=== PATIENT | male | born 1965 | race Caucasian/White ===

== ENCOUNTER → 2017-12-01 15:23 | Outpatient (CLI) | payer OTHER, SELFPAY ==
[2017-12-01 17:08] LABS: Absolute Lymphocyte Count 2.39 X10^3/ul (0.83-4.51); Absolute Neutrophil Count 6.3 X10^3/uL (2.0-7.7); Basophil# 0.04 X10^3/uL; Basophil% 0.4 % (0-1); Eosinophil# 0.24 X10^3/uL; Eosinophils% 2.4 % (0-5); Hematocrit 42.6 % (40-54); Hemoglobin 14.1 g/dl (13.0-16.5); Lymphocyte # 2.39 X10^3/ul (4.0); Lymphocyte % 24.1 % (19-41); Mean Corp Hgb Conc 33.1 g/gl (32-36); Mean Corpuscular Hgb 31.6 pg (27.0-32.0); Mean Corpuscular Volume 95.5 fL (80-94); Mean Platelet Vol. 11.3 fl (6.2-12.0); Monocyte# 0.94 X10^3/uL; Monocyte% 9.5 % (0-10); Neutrophil # 6.27 X10^3/uL (2.7-7.7); Neutrophil % 63.3 % (47-70); Platelet Count 246 K/mm3 (150-450); RBC Distribution Width CV 12.6 % (11.6-14.6); RBC Distribution Width SD 42.9 fl (35.1-43.9); Red Blood Count 4.46 M/mm3 (4.6-6.2); White Blood Count 9.9 K/mm3 (4.4-11.0)
[2017-12-01 17:37] LABS: AST(SGOT) 15 U/L (15-37); Alanine Aminotransfer ALT/SGPT 28 U/L (16-61); Albumin, Serum 3.7 g/dL (3.2-5.0); Alkaline Phosphatase 96 U/L (45-117); Anion Gap 11 (5-15); BUN 25 mg/dL (7-18); BUN/Creat Ratio 19.8 RATIO (10-20); Calcium,Total 8.9 mg/dL (8.5-10.1); Chloride 104 mmol/L (98-107); Creatinine, Serum 1.26 mg/dL (0.70-1.30); EST Glomerular Filtration Rate 64 mL/min (>60); Est Glom Filt Rate - Afr Amer 77 mL/min (>60); Globulin 3.6 g/dL (2.2-4.2); Glucose 94 mg/dL (74-106); Potassium 3.6 mmol/L (3.5-5.1); Protein, Total 7.3 g/dL (6.4-8.2); Sodium Level 141 mmol/L (136-145); Thyroid Stim Hormone (TSH) 1.92 uIU/mL (0.358-3.74)
[2017-12-01 18:16] LABS: POSITIVE COUNT NO; POSITIVE DIFFERENTIAL NO; POSITIVE MORPHOLOGY NO
== END ==
PROVIDERS: Family Provider Family Medicine Geriatric Medicine; PCP Family Medicine Geriatric Medicine; Visit Provider Family Medicine Geriatric Medicine
DX: E11.9 Type 2 diabetes mellitus without complications (principal); I10 Essential (primary) hypertension
CPT/HCPCS: 36415; 80053; 84443; 85025

== ENCOUNTER → 2018-11-11 16:01 | Outpatient (CLI) | payer OTHER, SELFPAY ==
[2018-11-11 16:49] LABS: Absolute Lymphocyte Count 1.89 X10^3/ul (0.83-4.51); Absolute Neutrophil Count 4.5 X10^3/uL (2.0-7.7); Basophil# 0.02 X10^3/uL; Basophil% 0.3 % (0-1); Eosinophil# 0.16 X10^3/uL; Eosinophils% 2.2 % (0-5); Hematocrit 41.1 % (40-54); Hemoglobin 13.8 g/dl (13.0-16.5); Lymphocyte # 1.89 X10^3/ul (4.0); Mean Corp Hgb Conc 33.6 g/gl (32-36); Mean Corpuscular Hgb 31.4 pg (27.0-32.0); Mean Corpuscular Volume 93.4 fL (80-94); Mean Platelet Vol. 10.9 fl (6.2-12.0); Monocyte# 0.66 X10^3/uL; Monocyte% 9.1 % (0-10); Neutrophil # 4.54 X10^3/uL (2.7-7.7); Neutrophil % 62.3 % (47-70); Platelet Count 194 K/mm3 (150-450); RBC Distribution Width CV 12.3 % (11.6-14.6); RBC Distribution Width SD 41.2 fl (35.1-43.9); White Blood Count 7.3 K/mm3 (4.4-11.0)
[2018-11-11 16:55] LABS: BUN 19 mg/dL (7-18); Creatinine, Serum 0.92 mg/dL (0.70-1.30); Glucose 93 mg/dL (74-106)
[2018-11-11 16:56] LABS: Anion Gap 6 (5-15); BUN/Creat Ratio 20.8 RATIO (10-20); Calcium,Total 9.2 mg/dL (8.5-10.1); Chloride 106 mmol/L (98-107); EST Glomerular Filtration Rate 92 mL/min (>60); Est Glom Filt Rate - Afr Amer 112 mL/min (>60); Potassium 3.6 mmol/L (3.5-5.1); Sodium Level 139 mmol/L (136-145)
[2018-11-11 17:14] LABS: POSITIVE COUNT NO; POSITIVE DIFFERENTIAL NO; POSITIVE MORPHOLOGY NO
[2018-11-11 17:58] LABS: International Normalized Ratio 1.1; Prothrombin Time (Protime)PT. 14.3 SECONDS (11.7-14.9)
== END ==
PROVIDERS: Family Provider Family Medicine Geriatric Medicine; PCP Family Medicine Geriatric Medicine; Referring Provider Specialist; Visit Provider Family Medicine Geriatric Medicine
DX: Z01.810 Encounter for preprocedural cardiovascular examination (principal)
CPT/HCPCS: 36415; 80048; 85025; 85610

== ENCOUNTER → 2018-12-02 13:55 | Outpatient (CLI) | payer OTHER, SELFPAY ==
[2018-12-02 15:33] LABS: Mean Corp Hgb Conc 34.1 g/dL (32-36); Mean Corpuscular Volume 93.8 fL (80-94); RBC Distribution Width CV 12.1 % (11.6-14.6); Red Blood Count 4.37 M/mm3 (4.6-6.2); White Blood Count 8.3 K/mm3 (4.4-11.0)
[2018-12-02 15:34] LABS: Absolute Lymphocyte Count 2.04 X10^3/uL (0.83-4.51); Absolute Neutrophil Count 5.4 X10^3/uL (2.0-7.7); Basophil# 0.04 X10^3/uL; Basophil% 0.5 % (0-1); Eosinophil# 0.16 X10^3/uL; Eosinophils% 1.9 % (0-5); Lymphocyte # 2.04 X10^3/ul (4.0); Lymphocyte % 24.5 % (19-41); Mean Platelet Vol. 10.9 fl (6.2-12.0); Monocyte% 8.4 % (0-10); NRBC Flagged by Analyzer 0 % (0-5); Neutrophil # 5.37 X10^3/uL (2.7-7.7); Neutrophil % 64.3 % (47-70); Platelet Count 213 K/mm3 (150-450)
[2018-12-02 18:14] LABS: Vitamin D,25 Hydroxy 28.3 ng/mL (29.95-100.01)
[2018-12-02 18:19] LABS: ALB/GLOB Ratio 1.1 RATIO (0.9-2.4); AST(SGOT) 19 U/L (15-37); Alanine Aminotransfer ALT/SGPT 35 U/L (16-61); Albumin, Serum 3.9 g/dL (3.2-5.0); Alkaline Phosphatase 106 U/L (45-117); Anion Gap 10 (5-15); BUN 24 mg/dL (7-18); BUN/Creat Ratio 21.8 RATIO (10-20); Chloride 102 mmol/L (98-107); EST Glomerular Filtration Rate 75 mL/min (>60); Est Glom Filt Rate - Afr Amer 90 mL/min (>60); Globulin 3.6 g/dL (2.2-4.2); Glucose 89 mg/dL (74-106); Potassium 3.6 mmol/L (3.5-5.1); Protein, Total 7.5 g/dL (6.4-8.2); Sodium Level 139 mmol/L (136-145); Thyroid Stim Hormone (TSH) 2.05 uIU/mL (0.358-3.74)
== END ==
PROVIDERS: Family Provider Family Medicine Geriatric Medicine; PCP Family Medicine Geriatric Medicine; Visit Provider Family Medicine Geriatric Medicine
DX: E11.9 Type 2 diabetes mellitus without complications (principal); E55.9 Vitamin D deficiency, unspecified; I10 Essential (primary) hypertension
CPT/HCPCS: 36415; 80053; 82306; 84443; 85025

== ENCOUNTER → 2019-12-06 15:10 | Outpatient (CLI) | payer OTHER, SELFPAY ==
[2019-12-06 17:08] LABS: Absolute Lymphocyte Count 2.15 X10^3/uL (0.83-4.51); Absolute Neutrophil Count 6.2 X10^3/uL (2.0-7.7); Basophil# 0.05 X10^3/uL; Basophil% 0.5 % (0-1); Eosinophil# 0.21 X10^3/uL; Eosinophils% 2.2 % (0-5); Hematocrit 42.1 % (40-54); Hemoglobin 13.4 g/dL (13.0-16.5); Lymphocyte # 2.15 X10^3/ul (4.0); Lymphocyte % 22.7 % (19-41); Mean Corp Hgb Conc 31.8 g/dL (32-36); Mean Corpuscular Hgb 29.7 pg (27.0-32.0); Mean Corpuscular Volume 93.3 fL (80-94); Mean Platelet Vol. 11.2 fl (6.2-12.0); Monocyte# 0.83 X10^3/uL; Monocyte% 8.7 % (0-10); NRBC Flagged by Analyzer 0 % (0-5); Neutrophil # 6.22 X10^3/uL (2.7-7.7); Neutrophil % 65.6 % (47-70); Platelet Count 298 K/mm3 (150-450); RBC Distribution Width CV 12.6 % (11.6-14.6); RBC Distribution Width SD 43.1 fl (35.1-43.9); Red Blood Count 4.51 M/mm3 (4.6-6.2); White Blood Count 9.5 K/mm3 (4.4-11.0)
[2019-12-06 17:30] LABS: AST(SGOT) 16 U/L (15-37); Alanine Aminotransfer ALT/SGPT 25 U/L (16-61); Albumin, Serum 3.9 g/dL (3.2-5.0); Alkaline Phosphatase 122 U/L (45-117); Anion Gap 5 (5-15); BUN 18 mg/dL (7-18); BUN/Creat Ratio 16.1 RATIO (10-20); Calcium,Total 8.9 mg/dL (8.5-10.1); Chloride 108 mmol/L (98-107); Creatinine, Serum 1.12 mg/dL (0.70-1.30); EST Glomerular Filtration Rate 73 mL/min (>60); Est Glom Filt Rate - Afr Amer 88 mL/min (>60); Globulin 3.9 g/dL (2.2-4.2); Glucose 90 mg/dL (74-106); Potassium 3.6 mmol/L (3.5-5.1); Protein, Total 7.8 g/dL (6.4-8.2); Sodium Level 141 mmol/L (136-145); Thyroid Stim Hormone (TSH) 4.55 uIU/mL (0.358-3.74)
== END ==
PROVIDERS: PCP Family Medicine Geriatric Medicine; Visit Provider Family Medicine Geriatric Medicine
DX: E11.9 Type 2 diabetes mellitus without complications (principal); I10 Essential (primary) hypertension
CPT/HCPCS: 36415; 80053; 84443; 85025

== ENCOUNTER → 2020-01-31 15:50 | Outpatient (CLI) | payer OTHER, SELFPAY | PROVIDERS: PCP Family Medicine Geriatric Medicine; Visit Provider Family Medicine Geriatric Medicine | DX: E03.9 Hypothyroidism, unspecified (principal) | CPT/HCPCS: 36415; 84443 ==

== ENCOUNTER → 2020-12-14 12:54 | Outpatient (CLI) | payer OTHER, SELFPAY ==
[2020-12-14 17:42] LABS: Absolute Lymphocyte Count 2.16 X10^3/uL (0.83-4.51); Basophil# 0.05 X10^3/uL; Basophil% 0.6 % (0-1); Eosinophil# 0.24 X10^3/uL; Hematocrit 42.9 % (40-54); Hemoglobin 14.5 g/dL (13.0-16.5); Lymphocyte # 2.16 X10^3/ul (0.83-4.51); Lymphocyte % 26.7 % (19-41); Mean Corp Hgb Conc 33.8 g/dL (32-36); Mean Corpuscular Hgb 31.3 pg (27.0-32.0); Mean Corpuscular Volume 92.5 fL (80-94); Mean Platelet Vol. 11.5 fl (6.2-12.0); Monocyte# 0.65 X10^3/uL; NRBC Flagged by Analyzer 0 % (0-5); Neutrophil # 4.97 X10^3/uL (2.7-7.7); Neutrophil % 61.6 % (47-70); Platelet Count 242 K/mm3 (150-450); RBC Distribution Width CV 12.1 % (11.6-14.6); RBC Distribution Width SD 41.1 fl (35.1-43.9); Red Blood Count 4.64 M/mm3 (4.6-6.2); White Blood Count 8.1 K/mm3 (4.4-11.0)
[2020-12-14 18:15] LABS: ALB/GLOB Ratio 1.1 RATIO (0.9-2.4); AST(SGOT) 20 U/L (15-37); Alanine Aminotransfer ALT/SGPT 32 U/L (16-61); Alkaline Phosphatase 98 U/L (45-117); Anion Gap 10 (5-15); BUN 18 mg/dL (7-18); BUN/Creat Ratio 19.7 RATIO (10-20); Calcium,Total 9.1 mg/dL (8.5-10.1); Chloride 105 mmol/L (98-107); Creatinine, Serum 0.91 mg/dL (0.70-1.30); EST Glomerular Filtration Rate 92 mL/min (>60); Est Glom Filt Rate - Afr Amer 111 mL/min (>60); Globulin 3.5 g/dL (2.2-4.2); Glucose 87 mg/dL (74-106); Potassium 3.6 mmol/L (3.5-5.1); Protein, Total 7.5 g/dL (6.4-8.2); Sodium Level 139 mmol/L (136-145); Thyroid Stim Hormone (TSH) 2.24 uIU/mL (0.358-3.74)
== END ==
PROVIDERS: PCP Family Medicine Geriatric Medicine; Visit Provider Family Medicine Geriatric Medicine
DX: E11.9 Type 2 diabetes mellitus without complications (principal); I10 Essential (primary) hypertension
CPT/HCPCS: 36415; 80053; 84443; 85025

== ENCOUNTER → 2021-04-25 11:29 | Outpatient (CLI) | payer OTHER, SELFPAY ==
--- NOTE | 2021-04-25 11:40 | RAD_ITS ---
STUDY: X-RAY CHEST REASON FOR EXAM: Male, 56 years old. Atypical chest pain TECHNIQUE: PA and lateral views of the chest. COMPARISON: None. FINDINGS: The lungs are clear and expanded. There is no demonstrated pleural abnormality. Normal size heart. Normal mediastinum and megan. Normal visualized pulmonary arteries. Normal visualized aortic arch and descending thoracic aorta. Normal visualized thoracic spine. Normal visualized ribs, clavicles, and shoulders. There is no demonstrated abnormality of the visualized soft tissue structures of the upper abdomen. RAD/Chest PA and Lateral IMPRESSION: Normal x-ray examination of the chest. Electronically Signed: Rogelio Jean MD at 16:52 EST , Service support ,
== END ==
PROVIDERS: PCP Family Medicine Geriatric Medicine; Referring Provider Family Medicine Geriatric Medicine; Visit Provider Family Medicine Geriatric Medicine
DX: R07.9 Chest pain, unspecified (principal)
CPT/HCPCS: 71046

== ENCOUNTER 2022-04-12 22:50 | Inpatient (IN) | payer OTHER, SELFPAY ==
[2022-04-12 22:51] VITALS: BP 221/132; PULSE 80; RESP 20; TEMP 36; O2SAT 99; BMI 32.8
--- NOTE | 2022-04-12 23:01 | EKG12_ITS ---
Test Reason : DYSRHYTHMIA Blood Pressure : / mmHG Vent. Rate : 111 BPM Atrial Rate : 111 BPM P-R Int : 140 ms QRS Dur : 090 ms QT Int : 324 ms P-R-T Axes : 057 040 042 degrees QTc Int : 440 ms Sinus tachycardia * ACUTE SD anterolateral infarct Abnormal ECG Confirmed by RILEY FIGUEROA, KEN ([id number]), subeditor JAMILA DAMON ([id number]) on 04/16/2022 12:17:54 PM Referred By: Chava Matos Confirmed By:KEN LIN MD
--- NOTE | 2022-04-12 23:15 | EKG12_ITS ---
Test Reason : CP Blood Pressure : / mmHG Vent. Rate : 069 BPM Atrial Rate : 069 BPM P-R Int : 116 ms QRS Dur : 086 ms QT Int : 404 ms P-R-T Axes : 030 054 044 degrees QTc Int : 432 ms Normal sinus rhythm Normal ECG Confirmed by RILEY FIGUEROA, KEN ([id number]), features editor JAMILA DAMON ([id number]) on 04/16/2022 12:18:08 PM Referred By: Chava Matos Confirmed By:KEN LIN MD
--- NOTE | 2022-04-12 23:16 | ED.VIS.CHEST ---
HPI History of Present Illness Chief Complaint: Chest Pain Informant: patient and spouse/S.O. Narrative Narrative: Patient is a 57-year-old male with history of hypertension and hyperlipidemia (not currently on any statins because of side effects) presenting with crushing chest pain. Patient states it started as a heaviness in his chest that has progressively worsened. He states he was watching TV when it started. Was a couple hours ago. He has some associated shortness of breath. He states he has numbness in his arms. He describes as a numbness and heaviness. Denies any weakness of his arms or his legs. Denies any lower extremity symptoms. Denies any discomfort radiation into his back neck or jaw. No other complaints at this time. Was in his normal state of health earlier today. Has never had any like this before. CVD Risk Factors: Positive for Hypertension, Family History 1' </=55 (Maternal uncle) and Smoking (Quit 2 months ago) PFSH [facility]LY [facility], [facility] Medical History (Updated 04/13/22 @ 06:[address] Avis Vidal, DO) HLD (hyperlipidemia) HTN (hypertension) Home Medications citalopram 10 mg tablet mg mood 04/13/22 [History Last Taken Unknown] levothyroxine 25 mcg tablet mcg thyroid 04/13/22 [History Last Taken Unknown] losartan 100 mg-hydrochlorothiazide 25 mg tablet tab blood pressure 04/13/22 [History Last Taken Unknown] potassium chloride 20 mEq tablet,extended release(part/cryst) (Klor-Con M) meq PO supplement 04/13/22 [History Last Taken Unknown] Allergy/AdvReac Type Severity Reaction Status Date / Time No Known Allergies Allergy Verified 04/12/22 22:54 Family History (Updated 04/12/22 @ 23:[address] Joe Cristobal MD) Other CVA (cerebral vascular accident) Social History Smoking Status: Former smoker ROS ROS ED Constitutional Constitutional ED: Reports sweats; Denies chills or fever(s) Eyes Eyes: Denies blurry vision or change in vision ENT ENT ED: Denies rhinorrhea or sore throat Cardiovascular Cardiovascular: Reports as per HPI and chest pain Respiratory/Chest Respiratory/Chest: Reports dyspnea; Denies cough Gastrointestinal Gastrointestinal: Denies abdominal pain, constipation, nausea or vomiting Genitourinary Genitourinary ED: Denies dysuria Musculoskeletal Musculoskeletal: Denies arthralgias, back pain or neck pain Integumentary Denies rash Neurologic Neurologic: Reports paresthesias; Denies weakness Psychiatric Psychiatric: Denies anxiety Hematologic/Lymphatic Hematologic/Lymphatic: Denies easy bleeding or easy bruising EXAM Physical Exam Const Vital Signs: 04/12/22 22:51 04/12/22 22:51 04/12/22 23:23 Temperature 96.8 F L 96.8 F L Temperature Source Temporal Temporal Pulse Rate 80 80 Respiratory Rate 20 H 20 H Blood Pressure 221/132 H 221/132 H Blood Pressure Mean 161 161 Pulse Ox 99 99 Oxygen Delivery Method Room Air Room Air Nasal Cannula Oxygen Flow Rate (L/min) 4 Positive well nourished and well developed Constitutional Narrative: Diaphoretic, unwell appearing General Appearance ED: well developed HEENT Reports dry mucous membranes Mouth ED: Yes dry mucous membranes Mouth: dry mucous membranes Eyes PERRL and EOMs intact bilaterally Neck no JVD Chest Wall inspection of chest normal and palpation of chest normal Resp normal respiratory effort and clear to auscultation bilaterally Cardio regular rate, regular rhythm and no murmurs GI normal to inspection, nondistended, normoactive bowel sounds, soft to palpation and non-tender Back/Spine no CVA tenderness Extremity normal to inspection Extremity Narrative: 2+ bilateral radial and DP pulses General Extremety ED: Negative for edema or pulses abnormal General Extremity: Negative for edema or pulses abnormal Neuro oriented x3 and no sensory deficits noted Sensorium / Orientation: awake and alert Motor Exam: strength 5/5 throughout; Negative for general weakness Psych mental status grossly normal Skin no rashes or lesions noted Heart Score History: Highly Suspicious ECG: Normal Age: >45 - <65 years Risk Factors: >/= 3 Risk Factors or History of CAD Score: 5 MDM MDM MDM Narrative Medical decision making narrative: Patient comes in for diaphoresis and crushing chest pressure. Presentation is concerning for ACS versus dissection given he is also having numbness in his arms. Initial EKG shows sinus rhythm with pronounced T waves in V3 through V4 but there is also elevated J-point's and the wave is concave. Repeat EKG obtained 17 minutes later does not show any dynamic ST segment changes but he now has multiple PVCs. Shortly after that patient becomes unresponsive and goes into ventricular fibrillation. No pulses appreciated. Patient is immediately defibrillated with 200 J. Chest compressions were immediately started as no pulse was appreciated however approximately 20 seconds later patient starts to have spontaneous movement and return of consciousness. Repeat EKG now shows ST elevation ID in the precordial leads. A STEMI alert is called. Spoke with cardiology on-call, Dr. Matos who will come in for cardiac catheterization. Patient is given additional 81 mg of aspirin as he already took 81 mg prior to arrival, Brilinta and heparin load. He started on an amiodarone bolus At approximately 2345 patient has another episode of ventricular tachycardia with sonorous respirations. Patient is immediately defibrillated back into sinus rhythm. He again has return of mentation. While waiting for Chocolate Coater to be ready patient is given oral nitroglycerin for hypertension and chest pain. Initially with the patient's normal EKG and concerning story/hypertension a CTA of the chest abdomen pelvis was ordered to make sure was not a dissection given that he was having this numbness in his arms. This was canceled when patient went into V. fib arrest and an EKG involved into a STEMI. Lab Data Attestation: I reviewed the patient's lab results. Labs: Laboratory Results - last 24 hr 04/12/22 04/12/22 04/12/22 23:05 23:05 23:05 WBC 9.3 RBC 4.68 Hgb 14.8 Hct 44.0 MCV 94.0 MCH 31.6 MCHC 33.6 RDW Std Deviation 43.8 RDW Coeff of [place] 12.8 Plt Count 223 MPV 11.5 Immature Gran % (Auto) 1.400 H Neut % (Auto) 53.3 Lymph % (Auto) 31.9 [place] % (Auto) 9.9 Eos % (Auto) 2.9 Baso % (Auto) 0.6 Absolute Neuts (auto) 5.0 Absolute Lymphs (auto) 2.97 Nucleated RBC % 0 APTT 29.0 Sodium 139 Potassium 3.0 L Chloride 105 Carbon Dioxide 27.0 Anion Gap 7 BUN 17 Creatinine 0.94 Estim Creat Clear Calc 93.46 Est GFR (MDRD) Af Amer 107 Est GFR (MDRD) Non-Af 88 BUN/Creatinine Ratio 18.1 Glucose 151 H Calcium 9.2 Magnesium Troponin I High Sens 27 04/12/22 23:05 WBC RBC Hgb Hct MCV MCH MCHC RDW Std Deviation RDW Coeff of [place] Plt Count MPV Immature Gran % (Auto) Neut % (Auto) Lymph % (Auto) [place] % (Auto) Eos % (Auto) Baso % (Auto) Absolute Neuts (auto) Absolute Lymphs (auto) Nucleated RBC % APTT Sodium Potassium Chloride Carbon Dioxide Anion Gap BUN Creatinine Estim Creat Clear Calc Est GFR (MDRD) Af Amer Est GFR (MDRD) Non-Af BUN/Creatinine Ratio Glucose Calcium Magnesium 2.2 Troponin I High Sens Radiography Chest X-Ray - ED: 1 View, Read by ED Physician, Read by Radiologist and No Acute Disease Critical Care Time Critical Care Time: Yes Critical care time (excluding procedures): 30-74 minutes (35), Discussing w/Patient &/or Family/Etcher Enameling, Discussing w/Consultants, Arranging Admission or Transfer and Performing Direct Patient Care at Bedside Discharge Plan Dx/Rx/DC Orders Clinical Impression: STEMI (ST elevation myocardial infarction), Cardiac arrest with ventricular fibrillation, Coronary artery disease, Hypertensive emergency Disposition Disposition: Acute Care [facility] Discharge Date/Time: 04/13/22 00:10
[2022-04-12] MEDS: Aspirin 81 MG TAB.CHEW PO (23:19)
[2022-04-12] MEDS: 0.9% Normal Saline 1,000 ML 1000 ML IV (23:28)
[2022-04-12 23:30] VITALS: BP 186/116; PULSE 93; RESP 11; O2SAT 97; BMI 34.9
--- NOTE | 2022-04-12 23:33 | PCM.HP.STD ---
HPI - General General Date of Admission: 04/12/22 Date of Service: 04/12/22 Chief Complaint: Chest pressure HPI Narrative MIKEY LANDRUM, is a 57 M with a significant history of hypertension; hyperlipidemia; former tobacco abuse who presents to the emergency department with 3 to 4 hours history of progressively worsening excruciating substernal chest pressure. The pain radiated to his bilateral arms where he had numbness. Associated with symptom is shortness of breath and diaphoresis. He denied any aggravating or ameliorating factors to the pain. Of note patient was on Crestor but because of numbness of his legs he was told to stop his Crestor. With his chest pain he took a pill of his Crestor. EKG showed a STEMI. STEMI alert was called. At the emergency department patient had 2 episodes of V. fib arrest for which he had ACLS with defibrillation; and an episode of V. fib arrest in route through the cardiac cath. He received amiodarone bolus and drip at the ED. [facility] Medical History (Updated 04/13/22 @ 01:[address] Joe Cristobal MD) HLD (hyperlipidemia) HTN (hypertension) Home Medications citalopram 10 mg tablet mg mood 04/13/22 [History Last Taken Unknown] levothyroxine 25 mcg tablet mcg thyroid 04/13/22 [History Last Taken Unknown] losartan 100 mg-hydrochlorothiazide 25 mg tablet tab blood pressure 04/13/22 [History Last Taken Unknown] potassium chloride 20 mEq tablet,extended release(part/cryst) (Klor-Con M) meq PO supplement 04/13/22 [History Last Taken Unknown] Allergy/AdvReac Type Severity Reaction Status Date / Time No Known Allergies Allergy Verified 04/12/22 22:54 Family History (Updated 04/12/22 @ 23:[address] Joe Cristobal MD) Other CVA (cerebral vascular accident) Surgical History no surgical history no surgical history Social History Smoking Status: Former smoker ROS ROS Narrative Pertinent positives and pertinent negatives as noted in HPI. All other systems were reviewed and are negative Vital Signs Vital Signs Vital Signs: 04/12/22 22:51 04/12/22 22:51 Temperature 96.8 F L 96.8 F L Temperature Source Temporal Temporal Pulse Rate 80 80 Respiratory Rate 20 H 20 H Blood Pressure 221/132 H 221/132 H Blood Pressure Mean 161 161 Pulse Ox 99 99 Oxygen Delivery Method Room Air Room Air Weight Weight: 113.5 kg Body Mass Index (BMI) 34.9 Physical Exam Narrative Physical exam: General: Well-nourished, well-developed. Head: Normocephalic, atraumatic, no tenderness Eyes: Vision is grossly intact. EOMI ENT, no trauma, moist mucous membranes, no rhinorrhea Neck: Nontender, No thyromegaly. CVS: Regular rate and rhythm. S1-S2 present. No murmur, gallop or rub. Respiratory : clear to auscultation bilaterally, chest wall nontender, no wheezing Abdomen: Soft, nontender, nondistended, normal bowel sounds, no masses : Deferred Back: Nontender, no CVA tenderness, no midline spinal tenderness, deformities, step-offs Extremities: Nontender full range of motion, no trauma Skin: Diaphoresis; Normal color, no trauma, abrasions Neuro: Alert, oriented, cranial nerves II through XII grossly intact. Psychiatry:Anxious; Not depressed. Results Lab / Micro Data Result Diagrams: 04/12/22 23:05 04/12/22 23:05 Assessment & Plan Assessment/Plan (1) STEMI (ST elevation myocardial infarction): (2) Hypertensive emergency: PLAN: Plan STEMI EKG was reviewed and independently interpreted. EKG showed ST elevation with reciprocal changes. Brilinta; aspirin and heparin bolus given in the emergency department. Chest x-ray was visualized and independently interpreted. I agree with radiologist interpretation of no acute cardiopulmonary process. Initial high-sensitivity troponin was 27, trend. Patient was taken to cardiac cath today percutaneous intervention was done. Conclusion of cath Summary is below: Sub-total Mid LAD with EDUARDA I flow 50% Mid LCX; 50% Prox OM1 50% Mid RCA Successful JURGEN Mid LAD using Resolute [place] 3.0x18 mm, post-dilated using 3.25 mm, optimized proximally using 3.5 mm balloon. Aspirin 81 mg; clopidogrel 75 mg orally daily; atorvastatin nightly; carvedilol twice daily and lisinopril daily per cardiology. I agree with. CBC showed normal white count but with bandemia of 1.4%. Likely reactive. Trend. Admit to the intensive care unit. Hypertensive emergency Highest systolic blood pressure of 236. Highest diastolic blood pressure of 132. Blood pressure medications as above. Trend blood pressures. V. fib arrest Status post shock Amiodarone drip continued. DVT prophylaxis: Subcutaneous Lovenox ordered. Charges/Coding Visit Charges Inpatient E&M: 05303 Init Hosp L3
[2022-04-12 23:35] VITALS: BP 186/116; PULSE 94; RESP 12; TEMP 36.6; O2SAT 94
[2022-04-12] MEDS: Heparin Injection (Vial) 5,000 UNIT/ML VIAL 4000 UNIT IV (23:41)
[2022-04-12] MEDS: TICAGRELOR 90 MG TABLET 180 MG PO (23:41)
[2022-04-12 23:42] LABS: Absolute Lymphocyte Count 2.97 X10^3/uL (0.83-4.51); Basophil# 0.06 X10^3/uL; Basophil% 0.6 % (0-1); Eosinophil# 0.27 X10^3/uL; Eosinophils% 2.9 % (0-5); Hemoglobin 14.8 g/dL (13.0-16.5); Lymphocyte # 2.97 X10^3/ul (0.83-4.51); Lymphocyte % 31.9 % (19-41); Mean Corp Hgb Conc 33.6 g/dL (32-36); Mean Corpuscular Hgb 31.6 pg (27.0-32.0); Mean Platelet Vol. 11.5 fl (6.2-12.0); Monocyte# 0.92 X10^3/uL; Monocyte% 9.9 % (0-10); NRBC Flagged by Analyzer 0 % (0-5); Neutrophil # 4.95 X10^3/uL (2.7-7.7); Neutrophil % 53.3 % (47-70); Platelet Count 223 K/mm3 (150-450); RBC Distribution Width CV 12.8 % (11.6-14.6); RBC Distribution Width SD 43.8 fl (35.1-43.9); Red Blood Count 4.68 M/mm3 (4.6-6.2); White Blood Count 9.3 K/mm3 (4.4-11.0)
[2022-04-12 23:43] VITALS: BP 186/116; PULSE 91; RESP 12; TEMP 36.4; O2SAT 93
[2022-04-12 23:44] LABS: Anion Gap 7 (5-15); BUN 17 mg/dL (7-18); BUN/Creat Ratio 18.1 RATIO (10-20); Calcium,Total 9.2 mg/dL (8.5-10.1); Chloride 105 mmol/L (98-107); Creatinine, Serum 0.94 mg/dL (0.70-1.30); EST Glomerular Filtration Rate 88 mL/min (>60); Est Glom Filt Rate - Afr Amer 107 mL/min (>60); Estimated Creatinine Clearance 93.46 ml/min; Glucose 151 mg/dL (74-106); Sodium Level 139 mmol/L (136-145); Troponin-I HS (w/2H Reflex) 27 pg/mL (3.0-78.0)
--- NOTE | 2022-04-12 23:45 | RAD_ITS ---
INDICATION: CHEST PAIN EXAMINATION/TECHNIQUE: X-RAY - portable upright AP chest x-ray COMPARISON: 04/25/2021 FINDINGS: LINES/DEVICES: None. LUNGS: No consolidation, edema or effusion. No pneumothorax. MEDIASTINUM AND CARDIOVASCULAR STRUCTURES: Cardiac silhouette not enlarged. Central airways and mediastinal contour are unremarkable. BONES AND SOFT TISSUES: Unremarkable. RAD/Chest 1 View (Portable) IMPRESSION: No radiographic evidence of acute cardiopulmonary disease. Electronically Signed: Yaniv Gutiérrez MD at 0:06 EST ,
--- NOTE | 2022-04-12 23:49 | NURSING ---
when coming in to give fluids, states he is freaking out. Monitor shows vtach and patient has pulse. Color change occured and pressed button, requested cart. Went into vfib on monitor with no pulse and started compressions. Pt shocked and compressions continued. Patient then grabbed my arms and pulled me off with ROSC. Then. when radiology in with patient, he stated he was feeling funny again and went out again. Threw HOB down and started compressions an shocked patient. Patient acheived rosc again.
[2022-04-12 23:54] VITALS: BP 236/124; PULSE 86
[2022-04-12] MEDS: Nitroglycerin SL (ED/IMG/CATH) 0.4 MG TABLET SL (23:54)
[2022-04-12 23:59] VITALS: O2SAT 99
[2022-04-13] VITALS (32 sets, daily range): BP systolic 134–206; BP diastolic 96–135; PULSE 68–86; RESP 11–19; TEMP 36.5–36.8; O2SAT 95–98; BMI 33.4
--- NOTE | 2022-04-13 00:08 | ED.RN ---
german coded again on way to laboratory engineer and required one shock for rosc.
[2022-04-13 00:26] LABS: Magnesium 2.2 mg/dL (1.6-2.6)
--- NOTE | 2022-04-13 00:52 | ECHOCS_ITS ---
Reason For Study: Chest Pain Procedure This was a 2D Doppler, Color Flow transthoracic echocardiogram. The study was technically difficult. Contrast injection was performed. Exam performed portable in ICU/CCU. Left Ventricle Mild concentric left ventricular hypertrophy. Normal LV size. The left ventricular ejection fraction is 50 %. Severe distal septal and apical hypokinesis. Right Ventricle Normal right ventricle. Atria The left and right atria are normal. Mitral Valve The mitral valve is structurally normal. No prolapse or stenosis seen. Tricuspid Valve Normal tricuspid valve. Aortic Valve Trisinus/trileaflet aortic valve. Pulmonic Valve The pulmonic valve is not well visualized. Trivial eccentric pulmonic valve insufficiency. Great Vessels Normal sized aortic root. Pericardium/Pleural No pericardial effusion. Medication Diluted definity 2ml given slow IV push to enhance endocardial definition. MMode/2D Measurements & Calculations LVIDd: 4.9 cm IVSd: 1.3 cm LA dimension: 4.5 cm LVIDs: 3.0 cm LVPWd: 1.3 cm RVDd: 3.3 cm FS: 38.9 % LAV(MOD-bp): 69.0 ml LA A4 area: 24.3 cm2 RA A4 area: 16.3 cm2 LAV(MOD-bp) Indexed: 30.4 ml/m2 LAV(MOD-sp2): 61.9 ml LAV(MOD-sp4): 77.3 ml Time Measurements MV dec time: 0.19 sec Doppler Measurements & Calculations MV E max messi: 71.5 cm/sec Lat Peak E' Messi: 7.2 cm/sec Med Peak E' Messi: 9.2 cm/sec MV A max messi: 99.5 cm/sec E/E' lat: 10.0 E/E' med: 7.8 MV E/A: 0.72 MV V2 max: 106.6 cm/sec MV P1/2t max messi: 106.6 cm/sec Ao V2 max: 131.6 cm/sec MV max P.5 mmHg MV P1/2t: 77.2 msec Ao max P.9 mmHg MV V2 mean: 65.3 cm/sec MV dec slope: 404.4 cm/sec2 MV mean P.0 mmHg MV V2 VTI: 30.7 cm MVA(P1/2t): 2.8 cm2 LV V1 max: 124.4 cm/sec PA V2 max: 99.5 cm/sec TR max messi: 257.4 cm/sec LV V1 max P.2 mmHg PA V2 mean: 70.9 cm/sec TR max P.5 mmHg ECHO/Echo Complete W/ Contrast Interpretation Summary Mild concentric left ventricular hypertrophy. The left ventricular ejection fraction is 50 %. Severe distal septal and apical hypokinesis Ordering Physician: Chava Matos Referring Physician: Chava Matos Performed By: Darrius Juares RCS
--- NOTE | 2022-04-13 00:53 | PCM.CONS.C ---
Assessment & Plan Assessment/Plan (1) STEMI (ST elevation myocardial infarction): PLAN: Emergent coronary angiography revealed subtotal occlusion in the mid left anterior descending artery with EDUARDA II flow. Successful percutaneous revascularization was performed with placement of a drug-eluting stent. EDUARDA-3 flow was achieved. Continue aspirin lifelong. Clopidogrel for at least 1 year. Risk factor modification. (2) Cardiac arrest with ventricular fibrillation: PLAN: Secondary to #1 above. Multiple episodes of V. fib in the emergency room, and route to the Truss Puller Helper and then in the Truss Puller Helper again. Successfully defibrillated. Revascularization achieved as noted in #1 above. Continue to monitor. (3) Coronary artery disease: PLAN: See #1 above. (4) HTN (hypertension): PLAN: Beta-blockers and KYLIE inhibitors. (5) HLD (hyperlipidemia): PLAN: Atorvastatin. (6) Hypokalemia: PLAN: Potassium being replaced. HPI Consult Data Date of Consult: 04/13/22 HPI Narrative HPI Narrative: The patient has been medical history significant for hypertension and dyslipidemia. He presented to the emergency room with complaints of chest discomfort when he was watching TV. Initial EKG failed to show any significant changes. However he continued to have chest discomfort and went into V. fib cardiac arrest. He was successfully defibrillated. Repeat EKG showed changes consistent with acute anterior myocardial infarction. Subsequently a STEMI alert was called. COUNTS INCLUDE 234 BEDS AT THE [facility] Medical History (Updated 04/13/22 @ 00:[address] Chava Matos MD) HLD (hyperlipidemia) HTN (hypertension) Allergy/AdvReac Type Severity Reaction Status Date / Time No Known Allergies Allergy Verified 04/12/22 22:54 Family History (Updated 04/12/22 @ 23:[address] Joe Cristobal MD) Other CVA (cerebral vascular accident) Surgical History no surgical history Social History (Updated 04/12/22 @ 23:[address] Joe Cristobal MD) Smoking Status: Former smoker Physical Exam Narrative Appeared comfortable. Heart regular rate and rhythm. Respirations unlabored. Alert oriented x3. No ankle edema. Risk Stratification Risk Stratification Applicable: No Objective Data Vital Signs: Vital Signs Temp Pulse Resp BP Pulse Ox O2 Del Method O2 Flow Rate 97.5 F L 86 12 236/124 H 99 Nasal Cannula 4 04/12/22 23:43 04/12/22 23:54 04/12/22 23:43 04/12/22 23:54 04/12/22 23:59 04/12/22 23:59 04/12/22 23:59 Oxygen Flow Rate (L/min) 4 Oxygen Delivery Method Nasal Cannula Weight: 250 lb 3.594 oz Body Mass Index (BMI) 34.9 Lab / Micro Data Result Diagrams: 04/12/22 23:05 04/12/22 23:05 Labs: Laboratory Results - last 24 hr 04/12/22 23:05: WBC 9.3, RBC 4.68, Hgb 14.8, Hct 44.0, MCV 94.0, MCH 31.6, MCHC 33.6, RDW Std Deviation 43.8, RDW Coeff of [place] 12.8, Plt Count 223, MPV 11.5, Immature Gran % (Auto) 1.400 H, Neut % (Auto) 53.3, Lymph % (Auto) 31.9, [place] % (Auto) 9.9, Eos % (Auto) 2.9, Baso % (Auto) 0.6, Absolute Neuts (auto) 5.0, Absolute Lymphs (auto) 2.97, Nucleated RBC % 0 04/12/22 23:05: Sodium 139, Potassium 3.0 L, Chloride 105, Carbon Dioxide 27.0, Anion Gap 7, BUN 17, Creatinine 0.94, Estim Creat Clear Calc 93.46, Est GFR (MDRD) Af Amer 107, Est GFR (MDRD) Non-Af 88, BUN/Creatinine Ratio 18.1, Glucose 151 H, Calcium 9.2, Troponin I High Sens 27 04/12/22 23:05: APTT 29.0 04/12/22 23:05: Magnesium 2.2 Cardiology Labs/Tests 04/12/22 23:05: WBC 9.3, RBC 4.68, Hgb 14.8, Hct 44.0, MCV 94.0, MCH 31.6, MCHC 33.6, Plt Count 223, MPV 11.5, Immature Gran % (Auto) 1.400 H, Neut % (Auto) 53.3, Lymph % (Auto) 31.9, [place] % (Auto) 9.9, Eos % (Auto) 2.9, Baso % (Auto) 0.6, Absolute Neuts (auto) 5.0, Nucleated RBC % 0 04/12/22 23:05: Sodium 139, Potassium 3.0 L, Chloride 105, Carbon Dioxide 27.0, Anion Gap 7, BUN 17, Creatinine 0.94, Est GFR (MDRD) Af Amer 107, Est GFR (MDRD) Non-Af 88, BUN/Creatinine Ratio 18.1, Glucose 151 H, Calcium 9.2 04/12/22 23:05: APTT 29.0 04/12/22 23:05: Magnesium 2.2 Rhythm: EKG: ECHO: Stress Test: Cardiac Cath: PCI: CT Surgery: Holter monitor: EPS: PPM: CXR: Chest CT Scan: Radiography Diagnostic Testing: Radiology Impression Chest X-Ray 04/12/22 23:45 IMPRESSION: No radiographic evidence of acute cardiopulmonary disease. Electronically Signed: Yaniv Gutiérrez MD at 0:06 EST Reading Location ID and State: [facility] / ID Tel , Service support ,
--- NOTE | 2022-04-13 01:06 | EKG12_ITS ---
Test Reason : REPEAT EKG Blood Pressure : / mmHG Vent. Rate : 079 BPM Atrial Rate : 079 BPM P-R Int : 154 ms QRS Dur : 094 ms QT Int : 430 ms P-R-T Axes : 053 039 030 degrees QTc Int : 493 ms Sinus rhythm with frequent Premature ventricular complexes Abnormal ECG Confirmed by RILEY FIGUEROA, KEN ([id number]), development editor JAMILA DAMON ([id number]) on 04/16/2022 12:18:22 PM Referred By: Chava Matos Confirmed By:KEN LIN MD
--- NOTE | 2022-04-13 01:12 | CL.I_ITS ---
Patient Name: MIKEY LANDRUM Study Date: 04/13/2022 Performing: Chava Matos MD Ht: 71 inches 180.34 cm : 1965 Wt: 250.22 lbs 113.5 kg Age: 57 Gender: male BSA: 2.32 PROCEDURE(S) PERFORMED DC01-(14598)LHC/COR/LV IC16-(00983/[id number])AMI, JURGEN OR PTCA, ARTERY/GRAFT, SINGLE VESSEL CLINICAL PROFILE AND CO-MORBIDITIES Indications: ACS <= 24 hrs, Resuscitated Cardiac Arrest Heart Failure: None CAD Presentations: STEMI. Symptom onset Date/Time: Time Not Available CONCLUSIONS Sub-total Mid LAD with EDUARDA I flow 50% Mid LCX; 50% Prox OM1 50% Mid RCA Successful JURGEN Mid LAD using Resolute Anna 3.0x18 mm, post-dilated using 3.25 mm, optimized proximally using 3.5 mm balloon RECOMMENDATIONS ASA Indefinitley Plavix for at least 12 months DESCRIPTION OF PROCEDURE The patient arrived to the procedure lab. The risks and benefits of the procedure as well as a full description of our services here and lack of surgical backup were fully explained to the patient and/or their significant other prior to the catheterization. The Timeout was completed, verifying the correct patient and procedure. The patient's procedural site was prepped and draped in the usual fashion. Local anesthetic was given subcutaneously to right radial region with Lidocaine 2%. Using a modified Seldinger technique, arterial access was obtained via the right radial artery, a 6Fr sheath was inserted.. Right Coronary Artery selective angiography was then performed in multiple views using a 5 Fr. JR 4 catheter. Left Ventriculography was performed in BARFIELD projection using a 5 Fr. Pigtail catheter. LV to AO pullback pressures were then recorded Xb 3.0 Guide catheter was inserted and engaged into the LCA. Runthrough Guide wire was advanced to the LAD. Resolute Onynx 3.0x18 Drug Eluting stent was inserted. Angiogram performed post stent deployment. NC Emerge 3.25x12 Balloon catheter was inserted. Angiogram performed post balloon dilatation. NC Emerge 3.50x8 Balloon catheter was inserted. Angiogram performed post balloon dilatation. The arterial sheath was pulled and a TR Band was applied for hemostasis w/ 11ml air CORONARY ANGIOGRAPHY DOMINANCE: Right Dominant LEFT HEART ASSESSMENT Left Ventricular Ejection Fraction: by LV Gram Unable to assess secondary to PVCs with injection LVEDP: 30 mmHg LEFT ANTERIOR DESCENDING ARTERY: LAD: Complex 99% Mid lesion in LAD Tubular 50% Mid lesion in LAD CIRCUMFLEX ARTERY: CIRCUMFLEX: Tubular 50% Mid lesion in Circumflex OM 1: Tubular 50% Proximal lesion in 1st OM RIGHT CORONARY ARTERY: RCA: Tubular 50% Mid lesion in RCA INTERVENTION INFORMATION LESION SITE: LAD (Mid) Lesion Complexity: High/C, thrombus present: Yes, lesion length: 16 mm, culprit lesion: Yes Pre Stenosis: 99 % Pre intervention EDUARDA flow: 1 PROCEDURE: Drug Eluting Stent with post dilatation Post Stenosis: 0 % Post intervention EDUARDA flow: 3 Lesion Devices: Cordis 6 Fr XB3.0 100cm Guide Catheter Terumo .014 180cm Runthrough Extra Floppy straight Medtronic Resolute Ezio RX JURGEN 3.0x18 Ray Sci NC EMERGE MR 3.25x12 BALLOON Ray Sci NC EMERGE MR 3.50x08 BALLOON COMPLICATIONS No Complications PROCEDURE MEDICATIONS Oxygen: 4 L/min via nasal cannula Amiodarone 150 mg IV @ 04/13/2022 00:14:53 Heparin 5000 unit(s) IV 04/13/2022 00:18:35 Heparin 2000 unit(s) IV 04/13/2022 00:22:42 Heparin 4000 unit(s) IV 04/13/2022 00:41:43 Magnesium Sulfate 2 Gm 04/13/2022 00:14:18 Nitro 50 mcg IC 04/13/2022 00:24:44 Potassium Chloride 10 mEq in 100cc NS 04/13/2022 00:18:15 Potassium Chloride 10 mEq in 100cc NS 04/13/2022 00:18:15 Verapamil 2.5mg, Ntg 200mcgs, given IA 04/13/2022 00:15:48 SUMMARY OF HEMODYNAMIC DATA Time AIR REST ECG 00:08:57 AO 138/80 (108) SA 00:17:43 ECG 00:34:21 LV 138/1, 29 00:38:09 LV 138/15, 31 00:38:18 LV 145/27, 42 00:39:08 LV 130/22, 36 00:39:17 LVp 125/20, 35 00:39:20 AOp 145/95 (121) 00:39:28 Signed By Chava Matos MD On 04/13/2022 01:12:11 Chava Matos MD
--- NOTE | 2022-04-13 01:16 | EKG12_ITS ---
Test Reason : STEMI Blood Pressure : / mmHG Vent. Rate : 081 BPM Atrial Rate : 081 BPM P-R Int : 150 ms QRS Dur : 092 ms QT Int : 386 ms P-R-T Axes : 045 025 -03 degrees QTc Int : 448 ms Normal sinus rhythm ST elevation consider anterolateral injury or acute infarct ACUTE [place] / STEMI Abnormal ECG When compared with ECG of 12-APR-2022 23:26, MANUAL COMPARISON REQUIRED, DATA IS UNCONFIRMED Confirmed by RILEY FIGUEROA, KEN ([id number]), editor city JAMILA DAMON ([id number]) on 04/16/2022 12:53:16 PM Referred By: Chava Matos Confirmed By:KEN LIN MD
[2022-04-13 01:20] LABS: Reflex Troponin-HS? (from REC) Y
[2022-04-13] MEDS: Potassium Chloride 10mEq/100mL 10 MEQ/100 ML IV.SOLN. 100 MEQ IV BOLUS ×4 (01:31→04:21)
[2022-04-13] MEDS: 0.9% Normal Saline 1,000 ML 100 ML IV (01:31)
[2022-04-13] MEDS: Clopidogrel Bisulfate 300 MG Tablet PO (02:14)
[2022-04-13] MEDS: Carvedilol 3.125 MG TABLET PO (02:14)
[2022-04-13] MEDS: Atorvastatin Calcium 40 MG Tablet PO ×2 (02:14→21:17)
[2022-04-13 03:36] LABS: Hemoglobin 13.8 g/dL (13.0-16.5); Mean Corp Hgb Conc 33.7 g/dL (32-36); Mean Corpuscular Hgb 31.5 pg (27.0-32.0); Mean Corpuscular Volume 93.6 fL (80-94); Mean Platelet Vol. 10.8 fl (6.2-12.0); Platelet Count 205 K/mm3 (150-450); RBC Distribution Width CV 12.6 % (11.6-14.6); RBC Distribution Width SD 43.3 fl (35.1-43.9); Red Blood Count 4.38 M/mm3 (4.6-6.2)
[2022-04-13 04:04] LABS: AST(SGOT) 80 U/L (15-37); Alanine Aminotransfer ALT/SGPT 82 U/L (16-61); Albumin, Serum 3.2 g/dL (3.2-5.0); Alkaline Phosphatase 84 U/L (45-117); Anion Gap 7 (5-15); BUN 15 mg/dL (7-18); BUN/Creat Ratio 17.6 RATIO (10-20); Calcium,Total 7.8 mg/dL (8.5-10.1); Chloride 107 mmol/L (98-107); Cholesterol 248 mg/dL (200); Creatinine, Serum 0.85 mg/dL (0.70-1.30); EST Glomerular Filtration Rate 99 mL/min (>60); Est Glom Filt Rate - Afr Amer 119 mL/min (>60); Estimated Creatinine Clearance 103.35 ml/min; Globulin 3.3 g/dL (2.2-4.2); Glucose 126 mg/dL (74-106); High Density Lipoprotein 43 mg/dL; Potassium 3.9 mmol/L (3.5-5.1); Protein, Total 6.5 g/dL (6.4-8.2); Sodium Level 139 mmol/L (136-145); Triglycerides 96 mg/dL; Very Low Density Lipoprotein 19 mg/dL (5-40)
[2022-04-13 04:05] LABS: Troponin-I HS 7861 pg/mL (3.0-78.0)
[2022-04-13] MEDS: 0.9% Saline Lock 10 ML Syringe IV (04:13)
[2022-04-13] MEDS: Labetalol (Prefilled) 20 MG/4 ML 10 MG IV ×2 (04:22→05:57)
[2022-04-13] MEDS: hydroCHLOROthiazide 25 MG Tablet PO (08:42)
[2022-04-13] MEDS: Carvedilol 6.25 MG Tablet PO ×2 (08:42→21:17)
[2022-04-13] MEDS: Aspirin E.C. 81 MG Tablet PO (08:42)
[2022-04-13] MEDS: Losartan Potassium 50 MG Tablet PO (08:42)
[2022-04-13] MEDS: cloNIDine HCl 0.1 MG Tablet PO ×2 (08:42→17:27)
[2022-04-13] MEDS: Clopidogrel Bisulfate 75 MG Tablet PO (08:43)
[2022-04-13] MEDS: Acetaminophen 325 MG Tablet 650 MG PO (09:41)
--- NOTE | 2022-04-13 09:45 | PN.CARD_ITS ---
Subjective Subjective Feels better. Some soreness over anterior chest. Objective Data Vital Signs: Vital Signs Temp Pulse Resp BP Pulse Ox O2 Del Method O2 Flow Rate 98.2 F 76 14 196/131 H 97 Room Air 2 04/13/22 08:00 04/13/22 09:00 04/13/22 09:00 04/13/22 09:00 04/13/22 09:00 04/13/22 09:00 04/13/22 03:00 Oxygen Flow Rate (L/min) 2 Oxygen Delivery Method Room Air Weight: 238 lb 1.588 oz Body Mass Index (BMI) 33.4 Intake & Output: Intake and Output for Last 24 Hours 04/11/22 04/12/22 04/13/22 23:59 23:59 23:59 Intake Total 1599.67 / 1599.67 Output Total 2300 / 2300 Balance -700.33 / -700.33 Lab / Micro Data Attestation: I reviewed the patient's lab results. Result Diagrams: 04/13/22 03:25 04/13/22 03:25 Labs: Laboratory Results - last 24 hr 04/12/22 23:05: WBC 9.3, RBC 4.68, Hgb 14.8, Hct 44.0, MCV 94.0, MCH 31.6, MCHC 33.6, RDW Std Deviation 43.8, RDW Coeff of Almas 12.8, Plt Count 223, MPV 11.5, Immature Gran % (Auto) 1.400 H, Neut % (Auto) 53.3, Lymph % (Auto) 31.9, [place] % (Auto) 9.9, Eos % (Auto) 2.9, Baso % (Auto) 0.6, Absolute Neuts (auto) 5.0, Absolute Lymphs (auto) 2.97, Nucleated RBC % 0 04/12/22 23:05: Sodium 139, Potassium 3.0 L, Chloride 105, Carbon Dioxide 27.0, Anion Gap 7, BUN 17, Creatinine 0.94, Estim Creat Clear Calc 93.46, Est GFR (MDRD) Af Amer 107, Est GFR (MDRD) Non-Af 88, BUN/Creatinine Ratio 18.1, Glucose 151 H, Calcium 9.2, Troponin I High Sens 27 04/12/22 23:05: APTT 29.0 04/12/22 23:05: Magnesium 2.2 04/13/22 03:25: Sodium 139, Potassium 3.9, Chloride 107, Carbon Dioxide 25.0, Anion Gap 7, BUN 15, Creatinine 0.85, Estim Creat Clear Calc 103.35, Est GFR (MDRD) Af Amer 119, Est GFR (MDRD) Non-Af 99, BUN/Creatinine Ratio 17.6, Glucose 126 H, Calcium 7.8 L, Total Bilirubin 0.40, AST 80 H, ALT 82 H, Alkaline Phosphatase 84, Total Protein 6.5, Albumin 3.2, Globulin 3.3, Albumin/Globulin Ratio 1.0, Triglycerides 96, Cholesterol 248 H, LDL Cholesterol 186 H, VLDL Cholesterol 19, HDL Cholesterol 43 04/13/22 03:25: WBC 15.0 H, RBC 4.38 L, Hgb 13.8, Hct 41.0, MCV 93.6, MCH 31.5, MCHC 33.7, RDW Std Deviation 43.3, RDW Coeff of Almas 12.6, Plt Count 205, MPV 10.8 04/13/22 03:25: Troponin I High Sens 7861 H* Rhythm Strip Rhythm Strip: Sinus Rhythm Cardiology Labs/Tests 04/12/22 23:05: WBC 9.3, RBC 4.68, Hgb 14.8, Hct 44.0, MCV 94.0, MCH 31.6, MCHC 33.6, Plt Count 223, MPV 11.5, Immature Gran % (Auto) 1.400 H, Neut % (Auto) 53.3, Lymph % (Auto) 31.9, [place] % (Auto) 9.9, Eos % (Auto) 2.9, Baso % (Auto) 0.6, Absolute Neuts (auto) 5.0, Nucleated RBC % 0 04/12/22 23:05: Sodium 139, Potassium 3.0 L, Chloride 105, Carbon Dioxide 27.0, Anion Gap 7, BUN 17, Creatinine 0.94, Est GFR (MDRD) Af Amer 107, Est GFR (MDRD) Non-Af 88, BUN/Creatinine Ratio 18.1, Glucose 151 H, Calcium 9.2 04/12/22 23:05: APTT 29.0 04/12/22 23:05: Magnesium 2.2 04/13/22 03:25: Sodium 139, Potassium 3.9, Chloride 107, Carbon Dioxide 25.0, Anion Gap 7, BUN 15, Creatinine 0.85, Est GFR (MDRD) Af Amer 119, Est GFR (MDRD) Non-Af 99, BUN/Creatinine Ratio 17.6, Glucose 126 H, Calcium 7.8 L, Total Bilirubin 0.40, Triglycerides 96, Cholesterol 248 H, LDL Cholesterol 186 H, VLDL Cholesterol 19, HDL Cholesterol 43 04/13/22 03:25: WBC 15.0 H, RBC 4.38 L, Hgb 13.8, Hct 41.0, MCV 93.6, MCH 31.5, MCHC 33.7, Plt Count 205, MPV 10.8 Rhythm: EKG: Changes consistent with recent anterior NC. ECHO: Stress Test: Cardiac Cath: PCI: CT Surgery: Holter monitor: EPS: PPM: CXR: Chest CT Scan: Radiography Diagnostic Testing: Radiology Impression Chest X-Ray 04/12/22 23:45 IMPRESSION: No radiographic evidence of acute cardiopulmonary disease. Electronically Signed: Yaniv Gutiérrez MD at 0:06 EST , Physical Exam Narrative Comfortable. No apparent distress. Heart sounds 1 and 2 are normal. Chest examination shows few crepitations right base. Abdomen soft. Alert oriented x3. Right radial pulse is 2+ Assessment & Plan Assessment/Plan (1) STEMI (ST elevation myocardial infarction): PLAN: Emergent coronary angiography revealed subtotal occlusion in the mid left anterior descending artery with EDUARDA II flow. Successful percutaneous revascularization was performed with placement of a drug-eluting stent. EDUARDA-3 flow was achieved. Continue aspirin lifelong. Clopidogrel for at least 1 year. Risk factor modification. (2) Cardiac arrest with ventricular fibrillation: PLAN: Secondary to #1 above. Multiple episodes of V. fib in the emergency room, and route to the Die Attaching Machine Tender and then in the Die Attaching Machine Tender again. Successfully defibrillated. Revascularization achieved as noted in #1 above. Continue to monitor. (3) Coronary artery disease: PLAN: See #1 above. (4) HTN (hypertension): PLAN: Beta-blockers and ARB. Start hydrochlorothiazide. (5) HLD (hyperlipidemia): PLAN: Atorvastatin. (6) Hypokalemia: PLAN: Corrected.
--- NOTE | 2022-04-13 09:59 | PN.HOSP_ITS ---
Subjective Subjective Patient seen and examined. HE complainend of some chest pain due to the CPR and shock he received. He denies any shortness of breath, cough, chest pain, palpitations, dizziness, nausea, vomiting or diarrhea. REview of systems is otherwise negative. Objective Data Objective Data Vital Signs: Vital Signs Temp Pulse Resp BP Pulse Ox O2 Del Method O2 Flow Rate 98.2 F 76 14 196/131 H 97 Room Air 2 04/13/22 08:00 04/13/22 09:00 04/13/22 09:00 04/13/22 09:00 04/13/22 09:00 04/13/22 09:00 04/13/22 03:00 Oxygen Flow Rate (L/min) 2 Oxygen Delivery Method Room Air Weight: 238 lb 1.588 oz Body Mass Index (BMI) 33.4 Intake & Output: Intake and Output for Last 24 Hours 04/11/22 04/12/22 04/13/22 23:59 23:59 23:59 Intake Total 1599.67 / 1599.67 Output Total 2300 / 2300 Balance -700.33 / -700.33 Lab / Micro Data Result Diagrams: 04/13/22 03:25 04/13/22 03:25 Labs: Laboratory Results - last 24 hr 04/12/22 23:05: WBC 9.3, RBC 4.68, Hgb 14.8, Hct 44.0, MCV 94.0, MCH 31.6, MCHC 33.6, RDW Std Deviation 43.8, RDW Coeff of Almas 12.8, Plt Count 223, MPV 11.5, Immature Gran % (Auto) 1.400 H, Neut % (Auto) 53.3, Lymph % (Auto) 31.9, [place] % (Auto) 9.9, Eos % (Auto) 2.9, Baso % (Auto) 0.6, Absolute Neuts (auto) 5.0, Absolute Lymphs (auto) 2.97, Nucleated RBC % 0 04/12/22 23:05: Sodium 139, Potassium 3.0 L, Chloride 105, Carbon Dioxide 27.0, Anion Gap 7, BUN 17, Creatinine 0.94, Estim Creat Clear Calc 93.46, Est GFR (MDRD) Af Amer 107, Est GFR (MDRD) Non-Af 88, BUN/Creatinine Ratio 18.1, Glucose 151 H, Calcium 9.2, Troponin I High Sens 27 04/12/22 23:05: APTT 29.0 04/12/22 23:05: Magnesium 2.2 04/13/22 03:25: Sodium 139, Potassium 3.9, Chloride 107, Carbon Dioxide 25.0, Anion Gap 7, BUN 15, Creatinine 0.85, Estim Creat Clear Calc 103.35, Est GFR (MDRD) Af Amer 119, Est GFR (MDRD) Non-Af 99, BUN/Creatinine Ratio 17.6, Glucose 126 H, Calcium 7.8 L, Total Bilirubin 0.40, AST 80 H, ALT 82 H, Alkaline Phosphatase 84, Total Protein 6.5, Albumin 3.2, Globulin 3.3, Albumin/Globulin Ratio 1.0, Triglycerides 96, Cholesterol 248 H, LDL Cholesterol 186 H, VLDL Cholesterol 19, HDL Cholesterol 43 04/13/22 03:25: WBC 15.0 H, RBC 4.38 L, Hgb 13.8, Hct 41.0, MCV 93.6, MCH 31.5, MCHC 33.7, RDW Std Deviation 43.3, RDW Coeff of Almas 12.6, Plt Count 205, MPV 10.8 04/13/22 03:25: Troponin I High Sens 7861 H* Radiography Diagnostic Testing: Radiology Impression Chest X-Ray 04/12/22 23:45 IMPRESSION: No radiographic evidence of acute cardiopulmonary disease. Electronically Signed: Yaniv Gutiérrez MD at 0:06 EST Reading Location ID and State: [facility] / [place] Tel , Service support , Rhythm Strip Rhythm Strip: Sinus Rhythm Physical Exam Const alert, oriented x3 and no apparent distress HEENT head/scalp atraumatic, moist oral mucous membranes and oropharynx normal Head and Scalp: normocephalic Mouth: oral and palatal mucosa normal Eyes PERRL, EOMs intact bilaterally and conjunctivae normal Neck no lymphadenopathy and supple Resp Resp Narrative: mildly diminished breath sounds bibasally. Few crackles on right lower lung cuellar. Cardio regular rate, regular rhythm, S1 normal heart sound, S2 normal heart sound and no murmurs GI normal to inspection, nondistended, normoactive bowel sounds, soft to palpation, non-tender and non-distended Extremity normal to inspection, full ROM and no clubbing, cyanosis or edema Neuro oriented x3, CN's II-XII intact bilaterally, moves all extremities and no focal motor deficits Sensorium / Orientation: awake and alert Coordination / Balance: [id number] test normal Motor Exam: strength 5/5 throughout Psych affect normal Assessment & Plan Assessment/Plan (1) Hypertensive emergency: (2) STEMI (ST elevation myocardial infarction): (3) Cardiac arrest with ventricular fibrillation: PLAN: Plan #STEMI * had cardiac cath which showed 50% mid left circumflex artery, and mid LAD and 50% mid RCA * he had successful JURGEN to mid LAD * on aspirin, plavix and high intensity statin, as well as carvedilol and losartan * cardiology on board. 2D echo ordered * check A1C and lipid profile * #HYpertension * very poorly controlled * BP remains elevated in the 190s systllic * on carvedilol and losartan. Started on HCTZ * IV hydralazine prn * adjust BP meds as needed * #Cardiac arrest due to ventricular fibrillation * had to be resuscitated via ACLS with several shocks. On amiodarone * cardiology on board * #Leucocytosis: * wbc is 15; likely reactive. * HE did have some crackles in the lung bases, so will get CXR due to possible aspiration during CPR * DVT prophylaxis: lovenox Charges/Coding Visit Charges Inpatient E&M: 42738 Subs Hosp L3
--- NOTE | 2022-04-13 10:00 | EKG12_ITS ---
Test Reason : AM EKG Blood Pressure : / mmHG Vent. Rate : 070 BPM Atrial Rate : 070 BPM P-R Int : 130 ms QRS Dur : 090 ms QT Int : 522 ms P-R-T Axes : 043 039 242 degrees QTc Int : 563 ms Normal sinus rhythm Marked T wave abnormality, consider anterolateral ischemia Prolonged QT Abnormal ECG When compared with ECG of 14-APR-2022 06:04, MANUAL COMPARISON REQUIRED, DATA IS UNCONFIRMED Confirmed by RILEY FIGUEROA, KEN ([id number]), scientific publications editor JAMILA DAMON ([id number]) on 04/16/2022 12:47:39 PM Referred By: Chava Matos Confirmed By:KEN LIN MD
--- NOTE | 2022-04-13 10:19 | RAD_ITS ---
STUDY: X-RAY CHEST REASON FOR EXAM: Male, 57 years old. aspiration pneuomonia TECHNIQUE: Single AP portable view of the chest. COMPARISON: 04/12/2022 FINDINGS: The lungs are clear and expanded. There is no demonstrated pleural abnormality. Normal size heart. Normal mediastinum and megan. Normal visualized pulmonary arteries. Normal visualized aortic arch and descending thoracic aorta. Normal visualized thoracic spine. Normal visualized ribs, clavicles, and shoulders. There is no demonstrated abnormality of the visualized soft tissue structures of the upper abdomen. RAD/Chest 1 View (Portable) IMPRESSION: Normal x-ray examination of the chest. Electronically Signed: Daquan Nicholson MD at 12:00 EST ,
--- NOTE | 2022-04-13 16:40 | CASEMGMT ---
RN CM DUMPER MOLD CLEANER CM to room to meet with patient for initial transition planning/care coordination assessment. RN OLYA introduced self and role at [facility]. Pt voices understanding and consents to assessment at this time. Pt resting in bed in no distress at this time. Pt is A/O at this time and answers all questions appropriately. Care providers, pharmacy, and demographics verified/updated at this time. PCP: D Specialists: Preferred Pharmacy: Insurance: Prescription Benefit: Living Will/HPOA: Pt does not currently have LW/HCPOA and declines info at this time. Pt made aware that he can contact SW as an out-pt and make appt in the future if he decides he would like to talk with someone about this or would like to utilize [facility] social work for advanced directive completion. Given Can Maker Rac card with information and contact number. Pt expresses understanding. States does not have LW or HCPOA . Interested in more information but states does not want to talk with SW at this time to complete paperwork. Provided information on advanced directives and given Zo[employer] Service rac card with number to call if chooses in the future to utilize [facility] social work for advanced directive completion. Educated patient that, if patient so chooses, can come back to [facility] and meet with a SW as an outpatient to complete health care advanced directives. Patient expresses understanding. LNOK: Living Arrangements: Transportation: Pt states drives self and states no transportation concerns at this time. DME: Denies using any DME and denies needs. States has the following DME: Pt states no need for further DME at this time. HHC/SNF: Pt wishes to return home and states has no concerns with going home at time of discharge. Pt states does not smoke or drink ETOH. CM to follow for home oxygen needs and any further discharge planning/needs. Pt voices no further concerns/needs at this time. Advised pt to ask for CM if any further questions/concerns/needs arise. Voices understanding. PLAN: Melchor TOLENTINO RN, CM
--- NOTE | 2022-04-13 16:40 | CASEMGMT ---
GLORY DOBSON SHOTGUN SHELL ASSEMBLY MACHINE OPERATOR CM to room to meet with patient for initial transition planning/care coordination assessment. GLORY DOBSON introduced self and role at [facility]. Pt voices understanding and consents to assessment at this time. Pt resting in bed in no distress at this time. Pt is A/O at this time and answers all questions appropriately. Care providers, pharmacy, and demographics verified/updated at this time. PCP: Dr Jennings Specialists: none Preferred Pharmacy: [facility] Insurance: [place] Prescription Benefit: Yes Living Will/HPOA: Pt does not currently have LW/HCPOA. Pt is interested in completing. Pt made SW unavailable until Friday and she may not be able to meet w/him while @ [facility]. He was made aware that he can contact SW as an out-pt and make appt in the future if he decides he would like to talk with someone about this or would like to utilize [facility] social work for advanced directive completion. Given Legal Intern Rac card with information and contact number. Pt expresses understanding. Order placed for SW consult for AD. LNOK: , Diya. Mother, Kaity Living Arrangements: Lives w/. Independent. Works full-time. Transportation: Pt states drives self and states no transportation concerns at this time. also drives DME: Denies using any DME and denies needs. He does have a BP machine. HHC/SNF: No hx of either. Has done OP therapy after surgery. No needs identified. Pt wishes to return home and states has no concerns with going home at time of discharge. Pt voices no further concerns/needs at this time. PLAN: Home Melchor TOLENTINO RN, CM
[2022-04-13] MEDS: Enoxaparin 40 MG/0.4 ML Syringe SC (17:27)
[2022-04-14] VITALS (21 sets, daily range): BP systolic 137–172; BP diastolic 86–118; PULSE 62–81; RESP 9–18; TEMP 36.2–36.8; O2SAT 94–98
--- NOTE | 2022-04-14 01:06 | EKG12_ITS ---
Test Reason : AM EKG Blood Pressure : / mmHG Vent. Rate : 071 BPM Atrial Rate : 071 BPM P-R Int : 146 ms QRS Dur : 084 ms QT Int : 494 ms P-R-T Axes : 027 035 -44 degrees QTc Int : 536 ms Sinus rhythm with Premature ventricular complexes or Fusion complexes Marked T wave abnormality, consider anterolateral ischemia Prolonged QT Abnormal ECG When compared with ECG of 13-APR-2022 05:04, MANUAL COMPARISON REQUIRED, DATA IS UNCONFIRMED Confirmed by RILEY FIGUEROA, KNE ([id number]), city editor JAMILA DAMON ([id number]) on 04/16/2022 12:47:55 PM Referred By: Chava Matos Confirmed By:KEN LIN MD
[2022-04-14 04:04] LABS: Absolute Lymphocyte Count 1.54 X10^3/uL (0.83-4.51); Absolute Neutrophil Count 6.8 X10^3/uL (2.0-7.7); Basophil# 0.04 X10^3/uL; Basophil% 0.4 % (0-1); Eosinophils% 1.1 % (0-5); Hematocrit 41.6 % (40-54); Hemoglobin 13.8 g/dL (13.0-16.5); Lymphocyte # 1.54 X10^3/ul (0.83-4.51); Lymphocyte % 16.6 % (19-41); Mean Corp Hgb Conc 33.2 g/dL (32-36); Mean Corpuscular Hgb 31.7 pg (27.0-32.0); Mean Corpuscular Volume 95.4 fL (80-94); Mean Platelet Vol. 10.8 fl (6.2-12.0); Monocyte% 8.6 % (0-10); NRBC Flagged by Analyzer 0 % (0-5); Neutrophil # 6.77 X10^3/uL (2.7-7.7); Neutrophil % 73.1 % (47-70); Platelet Count 181 K/mm3 (150-450); RBC Distribution Width CV 12.9 % (11.6-14.6); RBC Distribution Width SD 45.1 fl (35.1-43.9); Red Blood Count 4.36 M/mm3 (4.6-6.2); White Blood Count 9.3 K/mm3 (4.4-11.0)
[2022-04-14 04:51] LABS: Anion Gap 6 (5-15); BUN 11 mg/dL (7-18); BUN/Creat Ratio 11.6 RATIO (10-20); Calcium,Total 8.4 mg/dL (8.5-10.1); Chloride 104 mmol/L (98-107); Creatinine, Serum 0.95 mg/dL (0.70-1.30); EST Glomerular Filtration Rate 87 mL/min (>60); Est Glom Filt Rate - Afr Amer 105 mL/min (>60); Estimated Creatinine Clearance 92.47 ml/min; Glucose 116 mg/dL (74-106); Potassium 3.7 mmol/L (3.5-5.1); Sodium Level 139 mmol/L (136-145)
[2022-04-14] MEDS: Aspirin E.C. 81 MG Tablet PO (08:11)
[2022-04-14 08:38] LABS: Hemoglobin A1c 5.9 % (3.8-5.6)
--- NOTE | 2022-04-14 10:00 | PN.CARD_ITS ---
Subjective Subjective Doing good. Ambulating. No chest pain. No shortness of breath. Objective Data Vital Signs: Vital Signs Temp Pulse Resp BP Pulse Ox O2 Del Method O2 Flow Rate 98.3 F 76 10 L 149/114 H 98 Room Air 2 04/14/22 08:00 04/14/22 09:00 04/14/22 09:00 04/14/22 09:00 04/14/22 09:00 04/14/22 09:00 04/13/22 03:00 Oxygen Flow Rate (L/min) 2 Oxygen Delivery Method Room Air Weight: 233 lb 3.985 oz Body Mass Index (BMI) 33.4 Intake & Output: Intake and Output for Last 24 Hours 04/12/22 04/13/22 04/14/22 23:59 23:59 23:59 Intake Total 3404.67 / 3404.67 Output Total 3250 / 3250 300 / 300 Balance 154.67 / 154.67 -300 / -300 Lab / Micro Data Result Diagrams: 04/14/22 03:56 04/14/22 03:56 Labs: Laboratory Results - last 24 hr 04/14/22 03:56: WBC 9.3, RBC 4.36 L, Hgb 13.8, Hct 41.6, MCV 95.4 H, MCH 31.7, MCHC 33.2, RDW Std Deviation 45.1 H, RDW Coeff of Almas 12.9, Plt Count 181, MPV 10.8, Immature Gran % (Auto) 0.200, Neut % (Auto) 73.1 H, Lymph % (Auto) 16.6 L, Chambers % (Auto) 8.6, Eos % (Auto) 1.1, Baso % (Auto) 0.4, Absolute Neuts (auto) 6.8, Absolute Lymphs (auto) 1.54, Nucleated RBC % 0 04/14/22 03:56: Sodium 139, Potassium 3.7, Chloride 104, Carbon Dioxide 29.0, Anion Gap 6, BUN 11, Creatinine 0.95, Estim Creat Clear Calc 92.47, Est GFR (MDRD) Af Amer 105, Est GFR (MDRD) Non-Af 87, BUN/Creatinine Ratio 11.6, Glucose 116 H, Calcium 8.4 L 04/14/22 03:56: Hemoglobin A1c 5.9 H Rhythm Strip Rhythm Strip: Sinus Rhythm Cardiology Labs/Tests 04/14/22 03:56: WBC 9.3, RBC 4.36 L, Hgb 13.8, Hct 41.6, MCV 95.4 H, MCH 31.7, MCHC 33.2, Plt Count 181, MPV 10.8, Immature Gran % (Auto) 0.200, Neut % (Auto) 73.1 H, Lymph % (Auto) 16.6 L, Chambers % (Auto) 8.6, Eos % (Auto) 1.1, Baso % (Auto) 0.4, Absolute Neuts (auto) 6.8, Nucleated RBC % 0 04/14/22 03:56: Sodium 139, Potassium 3.7, Chloride 104, Carbon Dioxide 29.0, Anion Gap 6, BUN 11, Creatinine 0.95, Est GFR (MDRD) Af Amer 105, Est GFR (MDRD) Non-Af 87, BUN/Creatinine Ratio 11.6, Glucose 116 H, Calcium 8.4 L 04/14/22 03:56: Hemoglobin A1c 5.9 H Rhythm: EKG: ECHO: Stress Test: Cardiac Cath: PCI: CT Surgery: Holter monitor: EPS: PPM: CXR: Chest CT Scan: Radiography Diagnostic Testing: Radiology Impression Echocardiogram 04/13/22 00:52 Interpretation Summary Mild concentric left ventricular hypertrophy. The left ventricular ejection fraction is 50 %. Severe distal septal and apical hypokinesis Ordering Physician: Chava Matos Referring Physician: Chava Matos Performed By: Darrius Juares RCS Chest X-Ray 04/13/22 10:19 IMPRESSION: Normal x-ray examination of the chest. Electronically Signed: Daquan Nicholson MD at 12:00 EST , Physical Exam Narrative Comfortable. No apparent distress. Heart sounds 1 and 2 are normal. Chest examination shows few crepitations right base. Abdomen soft. Alert oriented x3. Assessment & Plan Assessment/Plan (1) STEMI (ST elevation myocardial infarction): PLAN: Emergent coronary angiography revealed subtotal occlusion in the mid left anterior descending artery with EDUARDA II flow. Successful percutaneous revascularization was performed with placement of a drug-eluting stent. EDUARDA-3 flow was achieved. Continue aspirin lifelong. Clopidogrel for at least 1 year. Risk factor modification. (2) Cardiac arrest with ventricular fibrillation: PLAN: Secondary to #1 above. Multiple episodes of V. fib in the emergency room, and route to the Batter Depositor and then in the Batter Depositor again. Successfully defibrillated. Revascularization achieved as noted in #1 above. Continue to monitor. (3) Coronary artery disease: PLAN: See #1 above. (4) HTN (hypertension): PLAN: Resistant. Increase carvedilol. Increase losartan. Start on amlodipine. Continue hydrochlorothiazide. (5) HLD (hyperlipidemia): PLAN: Atorvastatin. (6) Hypokalemia: PLAN: Corrected. PLAN: Plan Mildly prolonged QT. Check magnesium level. May transfer to stepdown. Anticipate discharge home tomorrow.
[2022-04-14 10:11] LABS: Magnesium 2.2 mg/dL (1.6-2.6)
--- NOTE | 2022-04-14 10:13 | PN.HOSP_ITS ---
Subjective Subjective Patient seen and examined. He feels well today and has no complaints. He denies any chest pain, palpitations, dizziness, nausea, vomiting or diarrhea. Review of systems is otherwise negative. Objective Data Objective Data Vital Signs: Vital Signs Temp Pulse Resp BP Pulse Ox O2 Del Method O2 Flow Rate 98.3 F 76 10 L 149/114 H 98 Room Air 2 04/14/22 08:00 04/14/22 09:00 04/14/22 09:00 04/14/22 09:00 04/14/22 09:00 04/14/22 09:00 04/13/22 03:00 Oxygen Flow Rate (L/min) 2 Oxygen Delivery Method Room Air Weight: 233 lb 3.985 oz Body Mass Index (BMI) 33.4 Intake & Output: Intake and Output for Last 24 Hours 04/12/22 04/13/22 04/14/22 23:59 23:59 23:59 Intake Total 3404.67 / 3404.67 Output Total 3250 / 3250 300 / 300 Balance 154.67 / 154.67 -300 / -300 Lab / Micro Data Result Diagrams: 04/14/22 03:56 04/14/22 03:56 Labs: Laboratory Results - last 24 hr 04/14/22 03:56: WBC 9.3, RBC 4.36 L, Hgb 13.8, Hct 41.6, MCV 95.4 H, MCH 31.7, MCHC 33.2, RDW Std Deviation 45.1 H, RDW Coeff of Almas 12.9, Plt Count 181, MPV 10.8, Immature Gran % (Auto) 0.200, Neut % (Auto) 73.1 H, Lymph % (Auto) 16.6 L, [place] % (Auto) 8.6, Eos % (Auto) 1.1, Baso % (Auto) 0.4, Absolute Neuts (auto) 6.8, Absolute Lymphs (auto) 1.54, Nucleated RBC % 0 04/14/22 03:56: Sodium 139, Potassium 3.7, Chloride 104, Carbon Dioxide 29.0, Anion Gap 6, BUN 11, Creatinine 0.95, Estim Creat Clear Calc 92.47, Est GFR (MDRD) Af Amer 105, Est GFR (MDRD) Non-Af 87, BUN/Creatinine Ratio 11.6, Glucose 116 H, Calcium 8.4 L 04/14/22 03:56: Hemoglobin A1c 5.9 H 04/14/22 03:56: Magnesium 2.2 Radiography Diagnostic Testing: Radiology Impression Echocardiogram 04/13/22 00:52 Interpretation Summary Mild concentric left ventricular hypertrophy. The left ventricular ejection fraction is 50 %. Severe distal septal and apical hypokinesis Ordering Physician: Chava Matos Referring Physician: Chava Matos Performed By: Darrius Juares [facility] Chest X-Ray 04/13/22 10:19 IMPRESSION: Normal x-ray examination of the chest. Electronically Signed: Daquan Nicholson MD at 12:00 EST , Rhythm Strip Rhythm Strip: Sinus Rhythm Physical Exam Const alert, oriented x3 and no apparent distress HEENT head/scalp atraumatic, moist oral mucous membranes and oropharynx normal Head and Scalp: normocephalic Mouth: oral and palatal mucosa normal Eyes PERRL, EOMs intact bilaterally and conjunctivae normal Neck no lymphadenopathy and supple Resp Resp Narrative: mildly diminished breath sounds bibasally. no wheezes or crackles. Cardio regular rate, regular rhythm, S1 normal heart sound, S2 normal heart sound and no murmurs GI normal to inspection, nondistended, normoactive bowel sounds, soft to palpation, non-tender and non-distended Extremity normal to inspection, full ROM and no clubbing, cyanosis or edema Neuro oriented x3, CN's II-XII intact bilaterally, moves all extremities and no focal motor deficits Sensorium / Orientation: awake and alert Coordination / Balance: [id number] test normal Motor Exam: strength 5/5 throughout Psych affect normal Assessment & Plan Assessment/Plan (1) Hypertensive emergency: (2) STEMI (ST elevation myocardial infarction): (3) Cardiac arrest with ventricular fibrillation: PLAN: Plan #STEMI * had cardiac cath which showed 50% mid left circumflex artery, and mid LAD and 50% mid RCA * he had successful JURGEN to mid LAD * on aspirin, plavix and high intensity statin, as well as carvedilol and losartan * cardiology on board. 2D echo ordered * A1C is 5.9 and lipid panel shows elevated cholesterol and LDL * #HYpertension * very poorly controlled * BP remains elevated in the 190s systllic * on carvedilol and losartan. Started on HCTZ * IV hydralazine prn * adjust BP meds as needed * #Impaired glucose tolerance * A1C is 5.9 * will start on PO metformin 500mg bid * #Cardiac arrest due to ventricular fibrillation * had to be resuscitated via ACLS with several shocks. On amiodarone * cardiology on board * #Leucocytosis: * wbc is 15; likely reactive. * HE did have some crackles in the lung bases, so will get CXR due to possible aspiration during CPR * DVT prophylaxis: lovenox Disposition: transfer to PCU Charges/Coding Visit Charges Inpatient E&M: 17293 Subs Hosp L2
[2022-04-14] MEDS: amLODIPine 5 MG Tablet PO (10:33)
[2022-04-14] MEDS: Carvedilol 12.5 MG Tablet PO ×2 (10:33→21:29)
[2022-04-14] MEDS: Clopidogrel Bisulfate 75 MG Tablet PO (10:33)
[2022-04-14] MEDS: hydroCHLOROthiazide 25 MG Tablet PO (10:33)
[2022-04-14] MEDS: Losartan Potassium 100 MG Tablet PO (10:33)
[2022-04-14] MEDS: Enoxaparin 40 MG/0.4 ML Syringe SC (10:33)
[2022-04-14] MEDS: FLU VACC QS2022-23(6MOS UP)/PF 60 MCG/0.5 ML SYRINGE IM (10:34)
[2022-04-14] MEDS: Acetaminophen 325 MG Tablet 650 MG PO (12:12)
[2022-04-14] MEDS: Atorvastatin Calcium 40 MG Tablet PO (21:29)
[2022-04-15] VITALS (10 sets, daily range): BP systolic 133–161; BP diastolic 85–99; PULSE 65–80; RESP 12–19; TEMP 36.4–36.6; O2SAT 92–95
[2022-04-15 04:20] LABS: Absolute Lymphocyte Count 1.28 X10^3/uL (0.83-4.51); Absolute Neutrophil Count 5.9 X10^3/uL (2.0-7.7); Basophil# 0.04 X10^3/uL; Basophil% 0.5 % (0-1); Eosinophil# 0.19 X10^3/uL; Eosinophils% 2.3 % (0-5); Hematocrit 41.7 % (40-54); Hemoglobin 14.1 g/dL (13.0-16.5); Lymphocyte # 1.28 X10^3/ul (0.83-4.51); Lymphocyte % 15.3 % (19-41); Mean Corp Hgb Conc 33.8 g/dL (32-36); Mean Corpuscular Hgb 31.9 pg (27.0-32.0); Mean Corpuscular Volume 94.3 fL (80-94); Mean Platelet Vol. 10.7 fl (6.2-12.0); Monocyte# 0.89 X10^3/uL; Monocyte% 10.6 % (0-10); NRBC Flagged by Analyzer 0 % (0-5); Neutrophil # 5.92 X10^3/uL (2.7-7.7); Neutrophil % 70.8 % (47-70); Platelet Count 179 K/mm3 (150-450); RBC Distribution Width CV 12.9 % (11.6-14.6); RBC Distribution Width SD 44.6 fl (35.1-43.9); Red Blood Count 4.42 M/mm3 (4.6-6.2); White Blood Count 8.4 K/mm3 (4.4-11.0)
[2022-04-15 04:39] LABS: Anion Gap 6 (5-15); BUN 14 mg/dL (7-18); BUN/Creat Ratio 15.4 RATIO (10-20); Chloride 101 mmol/L (98-107); Creatinine, Serum 0.91 mg/dL (0.70-1.30); EST Glomerular Filtration Rate 92 mL/min (>60); Est Glom Filt Rate - Afr Amer 111 mL/min (>60); Estimated Creatinine Clearance 96.54 ml/min; Glucose 113 mg/dL (74-106); Potassium 3.6 mmol/L (3.5-5.1); Sodium Level 137 mmol/L (136-145)
--- NOTE | 2022-04-15 07:29 | CRPHASE1_ITS ---
Patient Communication Former Patient:: Phase I PHII Cardiac Rehab Discussed with Patient:: Yes Guide to Cardiac Rehab Given to Patient:: Yes Cardiac Rehab Facility Choice List Given to Patient:: Yes - pt chooses [facility] Choice Program [facility] CR PHII:: Communication Given to CR, Refer to [facility] Choice Program Other:: Communication Given to CR, With permission faxed order and referral information Refer Phase II Cardiac Rehab:: Yes Sessions:: 36 sessions - 3 days/wk, 12 weeks Cardiac Rehabilitation Info Cardiac Rehabilitation Program Information: Cardiac Rehab The cardiac rehab team at [facility] consists of highly skilled exercise physiologists, nurses, respiratory therapists and physicians working together with you. Our purpose is to help you have a full recovery and achieve the goals you set for yourself. Over the years many of our patients have returned to activities they assumed they would never do again! We can help restore your confidence and motivation to make lifestyle changes that can have a significant impact on your health and quality of life! We can help answer questions and concerns you may have about exercise, lifestyle, medications, diet, stress and anxiety which are common following a hospitalization. WE monitor ECG and vital signs during exercise and discuss your progress with you and report to your physician(s). Cardiac Rehab is proven to help reduce readmissions, improve functional capacity and lower recurrence of problems with your heart. Our Cardiac Rehab program is Certified by the [place] [employer]monary [employer] (AACVPR) and Accredited by the [employer] [employer] through our [facility]. You can contact us at . We invite you to call us with your questions or to get started in our program. If you have other questions or concerns be sure to ask your physician/provider during your follow-up visit. WE look forward to seeing you!
--- NOTE | 2022-04-15 07:30 | CRPH1.INSTRU ---
General Education CAD and cardiac anatomy and function:: Patient communicates acknowledgment Explanation of diagnoses and procedures:: Patient communicates acknowledgment Sign/Symptoms of NM:: Patient communicates acknowledgment Antiplatelet therapy: Patient communicates acknowledgment Proper use of NTG-SL: Patient communicates acknowledgment Emergency procedures and activation of EMS: Patient communicates acknowledgment Compliance of all prescribed medications: Patient communicates acknowledgment
[2022-04-15] MEDS: Clopidogrel Bisulfate 75 MG Tablet PO (07:49)
[2022-04-15] MEDS: hydroCHLOROthiazide 25 MG Tablet PO (07:49)
[2022-04-15] MEDS: amLODIPine 5 MG Tablet PO ×2 (07:50→08:23)
[2022-04-15] MEDS: Carvedilol 12.5 MG Tablet PO ×2 (07:50→08:23)
[2022-04-15] MEDS: Aspirin E.C. 81 MG Tablet PO (07:50)
[2022-04-15] MEDS: Losartan Potassium 100 MG Tablet PO (07:50)
[2022-04-15] MEDS: Enoxaparin 40 MG/0.4 ML Syringe SC (07:51)
[2022-04-15] MEDS: metFORMIN HCl 500 MG Tablet PO ×2 (08:21→17:12)
--- NOTE | 2022-04-15 08:27 | PCM.PN.CARD ---
Subjective Subjective Denies any complaints Objective Data Vital Signs: Vital Signs Temp Pulse Resp BP Pulse Ox O2 Del Method O2 Flow Rate 97.7 F L 76 12 161/96 H 95 Room Air 2 04/15/22 07:47 04/15/22 07:47 04/15/22 07:47 04/15/22 07:47 04/15/22 07:47 04/15/22 07:47 04/13/22 03:00 Oxygen Flow Rate (L/min) 2 Oxygen Delivery Method Room Air Weight: 228 lb 13.437 oz Body Mass Index (BMI) 33.4 Intake & Output: Intake and Output for Last 24 Hours 04/13/22 04/14/22 04/15/22 23:59 23:59 23:59 Intake Total 3404.67 / 3404.67 300 / 300 Output Total 3250 / 3250 600 / 600 700 / 700 Balance 154.67 / 154.67 -600 / -600 -400 / -400 Lab / Micro Data Result Diagrams: 04/15/22 04:10 04/15/22 04:10 Labs: Laboratory Results - last 24 hr 04/14/22 03:56: Hemoglobin A1c 5.9 H 04/14/22 03:56: Magnesium 2.2 04/15/22 04:10: WBC 8.4, RBC 4.42 L, Hgb 14.1, Hct 41.7, MCV 94.3 H, MCH 31.9, MCHC 33.8, RDW Std Deviation 44.6 H, RDW Coeff of Almas 12.9, Plt Count 179, MPV 10.7, Immature Gran % (Auto) 0.500, Neut % (Auto) 70.8 H, Lymph % (Auto) 15.3 L, [place] % (Auto) 10.6 H, Eos % (Auto) 2.3, Baso % (Auto) 0.5, Absolute Neuts (auto) 5.9, Absolute Lymphs (auto) 1.28, Nucleated RBC % 0 04/15/22 04:10: Sodium 137, Potassium 3.6, Chloride 101, Carbon Dioxide 30.0, Anion Gap 6, BUN 14, Creatinine 0.91, Estim Creat Clear Calc 96.54, Est GFR (MDRD) Af Amer 111, Est GFR (MDRD) Non-Af 92, BUN/Creatinine Ratio 15.4, Glucose 113 H, Calcium 9.0 Rhythm Strip Rhythm Strip: Sinus Rhythm Cardiology Labs/Tests 04/14/22 03:56: Hemoglobin A1c 5.9 H 04/14/22 03:56: Magnesium 2.2 04/15/22 04:10: WBC 8.4, RBC 4.42 L, Hgb 14.1, Hct 41.7, MCV 94.3 H, MCH 31.9, MCHC 33.8, Plt Count 179, MPV 10.7, Immature Gran % (Auto) 0.500, Neut % (Auto) 70.8 H, Lymph % (Auto) 15.3 L, [place] % (Auto) 10.6 H, Eos % (Auto) 2.3, Baso % (Auto) 0.5, Absolute Neuts (auto) 5.9, Nucleated RBC % 0 04/15/22 04:10: Sodium 137, Potassium 3.6, Chloride 101, Carbon Dioxide 30.0, Anion Gap 6, BUN 14, Creatinine 0.91, Est GFR (MDRD) Af Amer 111, Est GFR (MDRD) Non-Af 92, BUN/Creatinine Ratio 15.4, Glucose 113 H, Calcium 9.0 Rhythm: EKG: ECHO: Stress Test: Cardiac Cath: PCI: CT Surgery: Holter monitor: EPS: PPM: CXR: Chest CT Scan: Physical Exam Narrative Comfortable. Heart sounds 1 and 2 are normal. No murmurs or rubs are noted. Chest clear to auscultation bilaterally. Alert oriented x3. No ankle edema. Assessment & Plan Assessment/Plan (1) STEMI (ST elevation myocardial infarction): PLAN: Emergent coronary angiography revealed subtotal occlusion in the mid left anterior descending artery with EDUARDA II flow. Successful percutaneous revascularization was performed with placement of a drug-eluting stent. EDUARDA-3 flow was achieved. Continue aspirin lifelong. Clopidogrel for at least 1 year. Risk factor modification. (2) Cardiac arrest with ventricular fibrillation: PLAN: Secondary to #1 above. Multiple episodes of V. fib in the emergency room, and route to the [facility] and then in the [facility] again. Successfully defibrillated. Revascularization achieved as noted in #1 above. Stable. No further arrhythmias noted. (3) Coronary artery disease: PLAN: See #1 above. (4) HTN (hypertension): PLAN: Better but still not optimal. Increase carvedilol. Increase amlodipine. Continue hydrochlorothiazide. Continue losartan (5) HLD (hyperlipidemia): PLAN: Atorvastatin. Discussed with patient. He previously had some muscle aches/numbness with rosuvastatin. Tolerating atorvastatin well. (6) Hypokalemia: PLAN: Corrected. PLAN: Plan Anticipate discharge home tomorrow.
--- NOTE | 2022-04-15 10:00 | EKG12_ITS ---
Test Reason : AM EKG Blood Pressure : / mmHG Vent. Rate : 075 BPM Atrial Rate : 075 BPM P-R Int : 156 ms QRS Dur : 084 ms QT Int : 464 ms P-R-T Axes : 023 027 033 degrees QTc Int : 518 ms Normal sinus rhythm ST elevation consider lateral injury or acute infarct Prolonged QT ACUTE UT / STEMI Abnormal ECG When compared with ECG of 13-APR-2022 01:16, MANUAL COMPARISON REQUIRED, DATA IS UNCONFIRMED Confirmed by RILEY FIGUEROA, KEN ([id number]), development editor JAMILA DAMON ([id number]) on 04/16/2022 12:51:37 PM Referred By: Chava Matos Confirmed By:KEN LIN MD
[2022-04-15 12:50] LABS: ACT Activated Clotting Time 173 sec (74-137)
[2022-04-15 12:51] LABS: ACT Activated Clotting Time 215 sec (74-137)
--- NOTE | 2022-04-15 13:58 | PN.HOSP_ITS ---
Subjective Subjective Reports he continues to feel better, slight left-sided rib pain with inspiration. No shortness of breath. Blood pressure remains elevated. No further complaints this morning Objective Data Objective Data Vital Signs: Vital Signs Temp Pulse Resp BP Pulse Ox O2 Del Method O2 Flow Rate 97.7 F L 78 12 161/96 H 95 Room Air 2 04/15/22 07:47 04/15/22 11:04 04/15/22 07:47 04/15/22 07:47 04/15/22 07:47 04/15/22 07:47 04/13/22 03:00 Oxygen Flow Rate (L/min) 2 Oxygen Delivery Method Room Air Weight: 103.8 kg Body Mass Index (BMI) 33.4 Intake & Output: Intake and Output for Last 24 Hours 04/13/22 04/14/22 04/15/22 23:59 23:59 23:59 Intake Total 3404.67 / 3404.67 300 / 300 Output Total 3250 / 3250 600 / 600 700 / 700 Balance 154.67 / 154.67 -600 / -600 -400 / -400 Lab / Micro Data Result Diagrams: 04/15/22 04:10 04/15/22 04:10 Labs: Laboratory Results - last 24 hr 04/13/22 00:23: Activated Clotting Time 173 H 04/13/22 00:39: Activated Clotting Time 215 H 04/15/22 04:10: WBC 8.4, RBC 4.42 L, Hgb 14.1, Hct 41.7, MCV 94.3 H, MCH 31.9, MCHC 33.8, RDW Std Deviation 44.6 H, RDW Coeff of Almas 12.9, Plt Count 179, MPV 10.7, Immature Gran % (Auto) 0.500, Neut % (Auto) 70.8 H, Lymph % (Auto) 15.3 L, [place] % (Auto) 10.6 H, Eos % (Auto) 2.3, Baso % (Auto) 0.5, Absolute Neuts (auto) 5.9, Absolute Lymphs (auto) 1.28, Nucleated RBC % 0 04/15/22 04:10: Sodium 137, Potassium 3.6, Chloride 101, Carbon Dioxide 30.0, Anion Gap 6, BUN 14, Creatinine 0.91, Estim Creat Clear Calc 96.54, Est GFR (MDRD) Af Amer 111, Est GFR (MDRD) Non-Af 92, BUN/Creatinine Ratio 15.4, Glucose 113 H, Calcium 9.0 Rhythm Strip Rhythm Strip: Sinus Rhythm Physical Exam Const alert and oriented x3 General Appearance: cooperative and comfortable HEENT normocephalic and head/scalp atraumatic Eyes EOMs intact bilaterally Neck supple Resp normal respiratory effort and clear to auscultation bilaterally Cardio regular rate and regular rhythm GI soft to palpation, non-tender and non-distended Extremity normal to inspection Skin no rashes or lesions noted Neuro moves all extremities Psych affect normal Assessment & Plan Assessment/Plan (1) Hypertensive emergency: (2) STEMI (ST elevation myocardial infarction): (3) Cardiac arrest with ventricular fibrillation: PLAN: Plan #STEMI * had cardiac cath which showed 50% mid left circumflex artery, and mid LAD and 50% mid RCA * he had successful JURGEN to mid LAD * on aspirin, plavix and high intensity statin, as well as carvedilol and losartan * cardiology on board. 2D echo ordered and showed mild concentric left ventricular hypertrophy and an EF of 50% with distal septal and apical hypokinesis * A1C is 5.9 and lipid panel shows elevated cholesterol and LDL #HYpertension * very poorly controlled * BP continues to be elevated, * Carvedilol increased, on amlodipine, losartan, hydrochlorothiazide #Impaired glucose tolerance * A1C is 5.9 * will start on PO metformin 500mg bid #Cardiac arrest due to ventricular fibrillation * had to be resuscitated via ACLS with several shocks. Status post amiodarone * cardiology on board DVT prophylaxis: lovenox Disposition: Likely DC tomorrow Charges/Coding Visit Charges Inpatient E&M: 35340 Subs Hosp L2
[2022-04-15] MEDS: Carvedilol 25 MG Tablet PO (20:57)
[2022-04-15] MEDS: Atorvastatin Calcium 40 MG Tablet PO (20:58)
[2022-04-16 01:46] VITALS: PULSE 71
[2022-04-16 02:00] VITALS: BP 157/98; PULSE 66; RESP 12; TEMP 36.6; O2SAT 97
[2022-04-16 03:28] LABS: Absolute Lymphocyte Count 1.42 X10^3/uL (0.83-4.51); Absolute Neutrophil Count 5.4 X10^3/uL (2.0-7.7); Basophil# 0.04 X10^3/uL; Basophil% 0.5 % (0-1); Eosinophil# 0.22 X10^3/uL; Eosinophils% 2.7 % (0-5); Hematocrit 43.1 % (40-54); Hemoglobin 14.7 g/dL (13.0-16.5); Lymphocyte # 1.42 X10^3/ul (0.83-4.51); Lymphocyte % 17.6 % (19-41); Mean Corp Hgb Conc 34.1 g/dL (32-36); Mean Corpuscular Hgb 32.1 pg (27.0-32.0); Mean Corpuscular Volume 94.1 fL (80-94); Mean Platelet Vol. 10.7 fl (6.2-12.0); Monocyte% 11.2 % (0-10); NRBC Flagged by Analyzer 0 % (0-5); Neutrophil # 5.43 X10^3/uL (2.7-7.7); Neutrophil % 67.5 % (47-70); Platelet Count 192 K/mm3 (150-450); RBC Distribution Width CV 12.8 % (11.6-14.6); RBC Distribution Width SD 44.2 fl (35.1-43.9); Red Blood Count 4.58 M/mm3 (4.6-6.2); White Blood Count 8.1 K/mm3 (4.4-11.0)
[2022-04-16 03:35] LABS: Anion Gap 7 (5-15); BUN 17 mg/dL (7-18); BUN/Creat Ratio 18.2 RATIO (10-20); Calcium,Total 8.9 mg/dL (8.5-10.1); Chloride 101 mmol/L (98-107); Creatinine, Serum 0.94 mg/dL (0.70-1.30); EST Glomerular Filtration Rate 89 mL/min (>60); Est Glom Filt Rate - Afr Amer 107 mL/min (>60); Estimated Creatinine Clearance 93.46 ml/min; Glucose 105 mg/dL (74-106); Potassium 3.3 mmol/L (3.5-5.1); Sodium Level 138 mmol/L (136-145)
[2022-04-16] MEDS: Potassium Chloride Oral Tablet 20 MEQ 40 MEQ PO (05:05)
[2022-04-16 07:05] VITALS: PULSE 66
[2022-04-16] MEDS: hydroCHLOROthiazide 25 MG Tablet PO (08:23)
[2022-04-16] MEDS: metFORMIN HCl 500 MG Tablet PO (08:23)
[2022-04-16] MEDS: amLODIPine 10 MG Tablet PO (08:24)
[2022-04-16] MEDS: Losartan Potassium 100 MG Tablet PO (08:24)
[2022-04-16] MEDS: Carvedilol 25 MG Tablet PO (08:24)
[2022-04-16] MEDS: Enoxaparin 40 MG/0.4 ML Syringe SC (08:24)
[2022-04-16] MEDS: Aspirin E.C. 81 MG Tablet PO (08:24)
[2022-04-16] MEDS: Clopidogrel Bisulfate 75 MG Tablet PO (08:24)
[2022-04-16 09:00] VITALS: BP 122/74; PULSE 72; RESP 16; TEMP 36.6; O2SAT 98
[2022-04-16 11:05] VITALS: PULSE 82
--- NOTE | 2022-04-16 14:03 | DS.PCM_ITS ---
Providers Date of Admission: 04/12/22 Date of Discharge: 04/16/22 Primary Care Physician: Dr. Bautista Jennings MD Consultations 04/13/22 01:06 Consult: Cardiology Routine Consulting Provider: Chava Matos Reason for Consult: STEMI EMERGENT Consult: Yes MD Notified: Yes Date Notified: 04/12/22 Time Notified: 23:32 Method of Notification: ED Physician Initiated Reason For Visit: STEMI Diagnosis Discharge Diagnosis (1) Hypertensive emergency: Status: Acute Code(s): I16.1 - Hypertensive emergency (2) STEMI (ST elevation myocardial infarction): Status: Acute Code(s): I21.3 - ST elevation (STEMI) myocardial infarction of unspecified site (3) Cardiac arrest with ventricular fibrillation: Status: Acute Code(s): I46.9 - Cardiac arrest, cause unspecified; I49.01 - Ventricular fibrillation Plan #STEMI #HYpertension #Impaired glucose tolerance #Cardiac arrest due to ventricular fibrillation Medications at Discharge Home Medications levothyroxine 25 mcg tablet mcg thyroid 04/13/22 losartan 100 mg-hydrochlorothiazide 25 mg tablet tab blood pressure 04/13/22 potassium chloride 20 mEq tablet,extended release(part/cryst) (Klor-Con M) meq PO supplement 04/13/22 amlodipine 10 mg tablet 10 mg PO DAILY 30 days #30 tabs 04/16/22 aspirin 81 mg tablet,delayed release 81 mg PO DAILY@0800 #30 tabs 04/16/22 atorvastatin 40 mg tablet 40 mg PO QHS 30 days #30 tabs 04/16/22 carvedilol 25 mg tablet 25 mg PO BID 30 days #60 tabs 04/16/22 clopidogrel 75 mg tablet 75 mg PO DAILY 30 days #30 tabs 04/16/22 metformin 500 mg tablet 500 mg PO BIDCM 30 days #60 tabs 04/16/22 sertraline 25 mg tablet (Zoloft) 25 mg PO DAILY 30 days #30 tabs 04/16/22 Hospital Course Procedures 2-D Echocardiogram, ACLS performed, Cardiac catheterization, CPR performed and EKG Summary of Care Provided Minutes Spent on Discharge: 32 Hospital Course: MIKEY LANDRUM, is a 57 M with a significant history of hypertension; hyperlipidemia; former tobacco abuse who presented to the emergency department 04/22 with 3 to 4 hours history of progressively worsening excruciating substernal chest pressure. The pain radiated to his bilateral arms where he had numbness. Associated with symptom is shortness of breath and diaphoresis. He was found to have a STEMI and stimulator was called, he had 2 episodes of V. fib arrest in which he had ACLS with defibrillation and he also had an episode of V. fib arrest during cardiac cath. Received amnio bolus and drip in the ED. Cath showed subtotal mid LAD with EDUARDA I flow, 50% mid left circumflex, 50% proximal OM1, 50% mid RCA. He had successful JURGEN mid LAD using resolute [place] 3.0 x 18 mm, postdilated using 3.25 mm, optimized proximally using 3.5 mm balloon. He did well with this but continued to have elevated blood pressure and had multiple blood pressure medication adjustments. Of note he also had a mildly prolonged QTC and his Celexa was not restarted, he was agreeable to switching to Zoloft. Discharged home in stable condition. Instructions provided for patient as below: *Please take this with you to your next doctors appointment* ?You will need to follow-up with Dr. Matos, the head greenskeeper, within 2 weeks. Please call upon discharge to schedule your hospital follow-up appointment ? You will need to continue aspirin lifelong and Apidra grill for at least 1 year ? You have had several blood pressure medication changes: Continue your losartan?hydrochlorothiazide combination pill but you will also begin amlodipine 10 mg and Coreg 25 mg twice daily ? She will also begin taking atorvastatin 40 mg daily ?You are also started on metformin 500 mg twice daily for blood sugar. You do not need to check your sugar daily but advise metformin and lifestyle changes ? All of these medications will be sent to your preferred pharmacy on file ? Due to your heart your citalopram was changed to Zoloft 25 mg. Please discuss this with your primary care physician -Please call your primary care provider's office upon discharge to schedule a hospital follow up within 1 week. -For any concerning signs or symptoms please call 911 or proceed to the nearest emergency department ? Return to work in 2 weeks unless otherwise specified by her head greenskeeper Physical Exam Const alert and oriented x3 General Appearance: cooperative and comfortable HEENT normocephalic and head/scalp atraumatic Eyes EOMs intact bilaterally Neck supple Resp normal respiratory effort and clear to auscultation bilaterally Cardio regular rate and regular rhythm GI soft to palpation, non-tender and non-distended Extremity normal to inspection Skin no rashes or lesions noted Neuro moves all extremities Psych affect normal Weight / BMI Weight Weight: 104.1 kg Body Mass Index (BMI) 33.4 ABG / Lab / Microbiology Data Result Diagrams: 04/16/22 03:05 04/16/22 03:05 Laboratory: Laboratory Results - last 24 hr 04/16/22 03:05: WBC 8.1, RBC 4.58 L, Hgb 14.7, Hct 43.1, MCV 94.1 H, MCH 32.1 H, MCHC 34.1, RDW Std Deviation 44.2 H, RDW Coeff of Almas 12.8, Plt Count 192, MPV 10.7, Immature Gran % (Auto) 0.500, Neut % (Auto) 67.5, Lymph % (Auto) 17.6 L, [place] % (Auto) 11.2 H, Eos % (Auto) 2.7, Baso % (Auto) 0.5, Absolute Neuts (auto) 5.4, Absolute Lymphs (auto) 1.42, Nucleated RBC % 0 04/16/22 03:05: Sodium 138, Potassium 3.3 L, Chloride 101, Carbon Dioxide 30.0, Anion Gap 7, BUN 17, Creatinine 0.94, Estim Creat Clear Calc 93.46, Est GFR (MDRD) Af Amer 107, Est GFR (MDRD) Non-Af 89, BUN/Creatinine Ratio 18.2, Glucose 105, Calcium 8.9 Meaningful Use Info Meaningful Use Diagnoses (Choose all that apply): AMI AMI/Post PCI/Angioplasty Aspirin given w/in 24hrs of arrival?: Yes ASA at discharge?: Yes Antiplatelet Therapy at Discharge:: Yes Statins at discharge?: Yes Emigdio/ARB at discharge?: Yes Beta Marina at discharge?: Yes Done w/ Acute [place] measure.: Yes Documented LVEF (%): 50 Discharge Plan Admission Admit Date/Time: 04/12/22 23:29 Primary Reason for Your Visit: Chest pain Attending Provider: Medina Burton Primary Care Provider: Bautista Jennings Chi Consulting Providers: Chava Matos ; Joe Cristobal ; Allie Garland Instructions Forms: Work / School Excuse Patient Instructions: CAD Additional Instructions / Restrictions: *Please take this with you to your next doctors appointment* ?You will need to follow-up with Dr. Matos, the head greenskeeper, within 2 weeks. Please call upon discharge to schedule your hospital follow-up appointment ? You will need to continue aspirin lifelong and Apidra grill for at least 1 year ? You have had several blood pressure medication changes: Continue your losartan?hydrochlorothiazide combination pill but you will also begin amlodipine 10 mg and Coreg 25 mg twice daily ? She will also begin taking atorvastatin 40 mg daily ?You are also started on metformin 500 mg twice daily for blood sugar. You do not need to check your sugar daily but advise metformin and lifestyle changes ? All of these medications will be sent to your preferred pharmacy on file ? Due to your heart your citalopram was changed to Zoloft 25 mg. Please discuss this with your primary care physician -Please call your primary care provider's office upon discharge to schedule a hospital follow up within 1 week. -For any concerning signs or symptoms please call 911 or proceed to the nearest emergency department ? Return to work in 2 weeks unless otherwise specified by her head greenskeeper Discharge Orders/Prescriptions Prescriptions: New aspirin 81 mg Tablet,Delayed Release (Dr/Ec) 81 mg PO DAILY@0800 Qty: 30 0RF amlodipine 10 mg Tablet 10 mg PO DAILY 30 Days Qty: 30 0RF atorvastatin 40 mg Tablet 40 mg PO QHS 30 Days Qty: 30 0RF metformin 500 mg Tablet 500 mg PO BIDCM 30 Days Qty: 60 0RF carvedilol 25 mg Tablet 25 mg PO BID 30 Days Qty: 60 0RF clopidogrel 75 mg Tablet 75 mg PO DAILY 30 Days Qty: 30 0RF sertraline [Zoloft] 25 mg tablet 25 mg PO DAILY 30 Days Qty: 30 0RF Continued levothyroxine 25 mcg tablet losartan-hydrochlorothiazide 100-25 mg tablet potassium chloride [Klor-Con M20] 20 mEq tablet,ER particles/crystals PO Discontinued citalopram 10 mg tablet Referrals / Follow Up: Chava Matos MD [Med Staff - Active Staff] - Within 2 Weeks Bautista Jennings Chi, MD [Primary Care Provider] - Within 1 Week Disposition Disposition (needs filled in before D/C Order can be placed): Home, Self Care Charges/Coding Visit Charges Inpatient E&M: 49113 Disch Hosp
== END 2022-04-16 14:40 | disposition home or self-care (01) | DRG 246 ==
LOC: ED 23:32 → ICU 04-13 01:13
PROVIDERS: Student in an Organized Health Care Education/Training Program; Admitting Provider Hospitalist; Emergency Provider Emergency Medicine; PCP Family Medicine Geriatric Medicine; Referring Provider Internal Medicine Cardiovascular Disease; Visit Provider Internal Medicine
DX: I21.02 ST elevation (STEMI) myocardial infarction involving left anterior descending coronary artery (principal); I49.01 Ventricular fibrillation; I16.1 Hypertensive emergency; I47.20 Ventricular tachycardia, unspecified; E78.00 Pure hypercholesterolemia, unspecified; I10 Essential (primary) hypertension; E87.6 Hypokalemia; I25.10 Atherosclerotic heart disease of native coronary artery without angina pectoris; R73.02 Impaired glucose tolerance (oral); Z23 Encounter for immunization; Z79.890 Hormone replacement therapy; Z87.891 Personal history of nicotine dependence; I49.3 Ventricular premature depolarization
CPT/HCPCS: 71045; 80048; 80053; 80061; 83036; 83735; 84484; 85025; 85027; 85347; 85730; 92941; 93005; 93306; 93458; 99285; J7030; J7040; J7050; Q9957; Q9967; 90686; A4216; C1725; C1769; C1874; C1887; C1894; C8929; C9606; J2405

== ENCOUNTER → 2022-07-12 | Outpatient (CLI) | payer OTHER, SELFPAY ==
--- NOTE | 2022-07-12 09:29 | CR.HP_ITS ---
CR - History & Physical - General Arrival date:: 07/12/22 Arrival time:: 09:30 Date of Referral:: 06/21/22 Date of CR Evaluation:: 07/12/22 Referring Physician: Carlo Primary Diagnosis: PCI w/coronary stent placement, [place]-ST Elevated Myocardial Infarction - History of Present Cardiac Event Onset Date: Enter Onset Date of cardiac illnesses in Comment field below Acute Myocardial Infarction within 12 months:: Yes - STEMI w/ cardiac arrest x 3 04/13/2022 PTCA or coronary stenting:: Yes - 99% occlusion in LAD 04/13/2022 Type of Symptoms:: Was at work was going to go deer hunting, began to have some indigestion, became tired went to [employer] at 7pm, at 10pm woke him up began to have chest pain like someone was sitting on his chest. Not soon after arriving in ER had first period of cardiac arrest. - Sleep Disorder Evaluation Hx of Sleep Apnea: No Do you snore loudly (louder than talking or can be heard through closed doors)?: Yes Do you often feel tired/ fatigued/ sleepy during daytime?: Yes Has anyone observed you stop breathing during sleep?: No History of Hypertension (for STOP score): Yes STOP Results: Positive - Medications Home Medications: Ambulatory Orders Medication Instructions Recorded levothyroxine 25 mcg tablet mcg thyroid 04/13/22 sertraline 25 mg tablet (Zoloft) 25 mg PO DAILY 30 days #30 tabs 04/16/22 amlodipine 10 mg tablet 10 mg PO DAILY #90 tabs 04/30/22 atorvastatin 40 mg tablet 40 mg PO QHS #90 tabs 04/30/22 carvedilol 25 mg tablet 25 mg PO BID #180 tabs 04/30/22 clopidogrel 75 mg tablet 75 mg PO DAILY #90 tabs 04/30/22 losartan 100 1 tab PO DAILY blood pressure #90 04/30/22 mg-hydrochlorothiazide 25 mg tablet tabs potassium chloride 20 mEq 20 meq PO DAILY supplement #90 tabs 04/30/22 tablet,extended release(part/cryst) (Klor-Con M) aspirin 81 mg tablet,delayed 81 mg PO DAILY #90 tabs 06/11/22 release - Allergies Allergies/Adverse Reactions: Allergies No Known Allergies Allergy (Verified 04/30/22 13:25) Advanced Directives - Advanced Directives 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 Living Will: No Advance Directives Information Provided: Yes Advance Directives on File: No DNR Order?:: No - MOLST See MOLST form: No Past Medical History - Covid-19 Screening Fever: No Unexplained muscle aches: No Current respiratory symptoms: No Upper respiratory infections symptoms: No Gastro-intestinal symptoms: No Kmr-Bbat-Gaorib symptoms: No Has tested positive for COVID-19 in last 30 days: No Date of testin07/12/22 - All vaccinations Booster and flu Had contact w/person w/symptoms or Covid-19 (+) last 14 days: No Has High Risk Exposures ID'd by Health dept/Inf Control team: No 65 years or older:: No Lives in Assisted Living facility:: No Has a chronic lung disease or moderate to severe asthma:: No Has a serious heart condition:: No Immunocompromised:: No Severely obese (Body Mass Index of 40 or higher):: No Diabetic:: No Has chronic kidney disease undergoing dialysis:: No Has liver disease:: No - Past Medical Illness Medical History: Past Medical History (Last Updated 06/21/22 @ 15:54 by Meggan Rivera) Cardiac arrest with ventricular fibrillation I46.9, I49.01 HLD (hyperlipidemia) E78.5 HTN (hypertension) I10 Hypertensive emergency I16.1 STEMI (ST elevation myocardial infarction) I21.3 - Past Surgical History Surgical History: Past Surgical History (Last Reviewed 04/30/22 @ 13:51 by Monster Moss STAFF ANESTHETIST, STAFF ANESTHETIST-C) History of coronary artery stent placement Onset Date: ~04/13/22 Z95.5 JURGEN Mid LAD [facility] [place] 3.0x18mm - Family History Summary Family History: Family History (Last Reviewed 04/30/22 @ 13:51 by Monster Moss NP, STAFF ANESTHETIST-C) Mother Atrial fibrillation Father Diabetes Other CVA (cerebral vascular accident) Social History - Smoking History Smoking Status: Former smoker Years Smokin Packs Smoked per Day: 0.5 Hx Smoking Cessation Date: 03/07/21 Hx Tobacco Use: No Hx Smoking Exposure: No - Occupation Occupation (List type of work in comments):: Employed Hours worked per day:: 10 - Hobbies, Recreation, Social Activities Hobbies: Sports - Hunting, Woodworking - make knives, , Hiking, Other - Fishing, motorcycle, camping Recreational Activities: I am able to engage in all my recreational activities Social Environment - Status Marital Status: - Current Living Arrangements Living Environment:: Spouse - Children How many children do you have?: 0 - Safety Do you feel safe in your surroundings?: Yes Review of Systems - Review of Systems Hints: Right click = Denies ([place]). Left click = Reports ([place]) Review of Present Symptoms: Reports: Shortness of Breath with Exertion - sometimes depends on the activity, Fatigue - still has days of fatigue. Days of a lag in activity, Heart Arrhythmia/Irregularities - History of ventricular fibrillation with cardiac arrest Defibrillated x 3, Appetite - Normal, Appetite - Special Diet - Better than what is was, staying away from evans, fried stuff.. Denies: Shortness of Breath at Rest, Angina, Dizziness/Lightheadedness, Sleep - Normal, Sexual Changes - Pain Is Patient Pain Free?: Yes Pain Location: lower extremity - Right knee, total hip replacement 3 years ago on left. Pain Level: 0/10 Risk Factor Assessment - Vital Signs Temperature: 97.8 F Respiratory Rate: 14 Pulse Ox: 98 Blood Pressure: 132/68 - Pulse Pulse Rate: 66 Pulse Rhythm: Regular - Hypertension How long have you been treated?: 2004 On medication(s)?: Yes Blood Pressure Sitting - Left Arm: 132/68 - Blood Cholesterol/Lipids Total Cholesterol (mg/dL) Goal = less than 200 mg/dL: 177 HDL Cholesterol (mg/dL) Goal = less than 40 mg/dL: 224 LDL Cholesterol (mg/dL) Goal = less than 70 mg/dL: 144 Triglycerides (mg/dL) Goal = less than 150 mg/dL: 45 - Obesity Height: 5 ft 11 in Weight:: 225 lb Weight in Pounds: 225.0 lbs Weight Source: Stated by Patient Body Mass Index (BMI): 31.4 Nutritional Referral for Obesity: No - Muscular weight, body maker - Physical Inactivity Physical Inactivity: Reg Exercise 30 min/day, Physically demanding job - Family History Family History: Family History (Last Reviewed 04/30/22 @ 13:51 by Monster Moss STAFF ANESTHETIST, STAFF ANESTHETIST-C) Mother Atrial fibrillation Father Diabetes Other CVA (cerebral vascular accident) Motivation - Motivation to Participate On a scale of 1 to 10, how prepared are you to commit to attending program?: 10 - Want to get healthy again What do you see as barriers to successfully being able to complete the program?: maybe work schedule What do you see as the benefits of succesfully completing the program? In other words, what do you hope to get out of participating in the program?: Getting healthier, get back in shape Are there issues you are dealing with that will interfere with completing the program?: no Do you have a spouse or signficant other, family or friends who will help support you to complete the program?: yes
--- NOTE | 2022-07-12 09:29 | PCM.CR.ITP ---
Diagnosis - General Information Admitting Diagnosis: PCI w/coronary stenting, Post [place]-STEMI w/cardiac arrest x 3 Secondary Diagnosis: Hypertenison, hyperlipidemia, hypertensive emergency Personal Learning Style:: Audio/Visual, Written Barriers to Learning: Vision Impairment Stage of change r/t lifestyle modifications:: Action Gave educational material for:: Treating Heart Disease, Emotions & Heart Disease, Stress Management & Relaxation, Sleep Disorders & Heart Disease, How The Heart Works, What it means to have Heart Disease, How Coronary Artery Disease is Diagnosed, Heart Procedures, What Heart Medications Do, Risk Factors & Modifications, Living an Active Life, Nutrition - Education/Goals Individual Counseling: Initial Assessment: Nicotine/Smoking, Abnormal Cholesterol Levels, High Blood Pressure Cardiac Rehabilitation Goals: 1. Maintain the individual as the primary focus of care. 2. To improve the patient's quality of life. 3. Identification of cardiac risk factors and provide cardiac risk factor management. 4. Enhance the psychosocial status of the patient. 5. Reconditioning enough to allow the patient to resume customary activities. 6. Control symptoms of cardiac disease Personal Goals: Initial Assessment: Improve energy level, Participate in home exercise program, Improve knowledge of cardiac disease, Improve muscle strength and endurance, Improve diet and eating habits (eat healthier), Control risk factors (learn risk factor modification) Scale for measuring improvement of personal goals: Enter appropriate number in Comments. 2 = Unchanged. 3 = Slightly Better. 4 = Moderate Improvement. 5 = Met my Goal - Diagnosis & Disease Process Outcomes/Goals: Pt IDs own risk factors & lifestyle modifications by Session 10, Verbalizes symptoms of angina & response by session 3., Pt independently manages Plan/Interventions: Assist Pt to ID & engage in lifestyle modification to reduce CVD risk, Instruct on individual risk factors, Review symptoms of angina & emergency actions, Review secondary diagnosis & identify educational needs. - Safety Referral to Physical Therapy: No Referral to [facility] Case Management: No Fall Risk Assessed:: Yes Assistive Devices:: None Exercise - Initial Assessment - Visit Date of Eval: 07/12/22 Session #:: 0 - Pre-cardaic rehab evaluation Mets: Pre-: >7 METS for 30 minutes by discharge - Physician Prescribed Exercise Modalities: Treadmill, Rower, Airdyne Frequency: 3x/week for 12 weeks [36 sessions] Intensity: 60-80% of age predicted maximum heart rate reserve Current METSs:: 4.0 Target Heart Rate:: 107-123 Resting Blood Pressure: 132/66 EKG Type: Normal Sinus Rhythm Current Physical Activity or Exercising minutes: Walks his dogs daily, physically active at work 8 to 10 hours - Outcomes & Goals Goals:: Verbalizes understanding of THR, RPE & goal METS by session 6, Documents in home exercise log/reports 30 min aerobic 5 day/wk by DC, Demonstrates accurate pulse taking by DC - Intervention & Plan Exercise Program Goals: Instruct on personal THR & RPE, Instruct on MET level & personal MET goal, Show patient to take own pulse /validate performance until accurate, Instruct on home exercise - Physical Activity Home Exercise Physical Activity - Home Exercise: Safe Exercise, Warm-up, Self-monitoring, Cool-Down, Home Exercise > 30 min Daily, Sitting Time <3 hours/daily - Outcomes & Goals Outcomes/Goals: Demonstrates correct Warm-up/exercise Cool-Down (S3) if = 2.5 METs, Verbalizes symptoms of exercise intolerance by Session 3 (S3), Demonstrate safe equipment use (S3) & follows exercise prescrition (6) - Intervention & Plan Plan/Intervention: Instruct warm-up & cool-down if exercising at > 2 METs, Instruct on symptoms of exercise intolerance & actions to take, Instruct & monitor on saf, Assess intial functional capacity & safety risk Nutrition - Initial Assessment - Program Goals Nutrition Program Goals: LDL <100 optimal. 100 - 129 Near optimal. 130 - 159 Borderline High. 160 - 189 High. Total Cholesterol <200 desirable. 200 - 239 Borderline High. >/= 240 High. HDL < 40 Low >/=60 High. Triglycerides <150 desirable. <199 optimal. VlDL 5 - 40. HgbA1C <7%. BMI <25 Patient has diagnosis of Hyperlipidemia (ICD E78)?: Yes - Visit Date of Assessment:: 07/12/22 Session #:: 0 - Pre-cardiac rehab evaluation - Cholesterol/Lipids (Other Core Measures) Triglycerides (mg/dL): 177 Total Cholesterol (mg/dL): 224 LDL Cholesterol (mg/dL): 144 HDL Cholesterol (mg/dL): 45 Determine presence & major risk factors that modify LDL goal: Cigarette smoking, Hypertension or hypertensive medication, Age men > 45 years; women >/= 55 years Outcomes/Goals: Pt IDs own risk factors & lifestyle modifications by Session 10, Verbalizes symptoms of angina & response by session 3., Pt independently manages Intervention/Plan: Instruct on personal lipid levels & lipid goals/NCEP guidelines, Instruct on cholesterol Referral to dietitian:: Yes - Medical Nutrition Therapy - Diabetes (Other Core Measures) Diabetes Type: Not Applicable - Weight Mgt (Other Care) Not Applicable: Yes Height: 5 ft 11 in Weight:: 225 lb - More muscular weight BMI: 31.4 Diagnosis Overweight/Obesity BMI> 30% ICD-10 E66: Yes Diagnosis High BMI/Morbid Obesity BMI> 35% ICD-10 Z68: No Outcomes/Goals: Pt sets, maintains & shows weight loss goal & trend during rehab Intervention/Plan: Instruct on ideal BMI & set weight loss goal w/patient, Assist pt to ID & incorporate diet changes for weight loss by S9, Encourage goal of using 250-300dcal per session for weight loss - Healthy Eating Habits Will attend diet classes:: Yes Outcomes/Goals:: Consume diet rich in vegs,fruits,whole grain/high fiber,fish,lean meat, Limit sat/trans fats,cholesterol & added salts & sugars Intervention/Plan:: Assess current eating habits - Education Gave educational materials for:: Healthy eating Nutrition - 30-Day Assessment Nutrition - 60-Day Assessment Nutrition - 90-Day Assessment Nutrition - Final Assessment Core - Initial Assessment - Visit Date of Eval: 07/12/22 Session #:: 0 - Pre-cardiac rehab evaluation - Medication Compliance Preventative Medication(s):: Aspirin, Clopidogrel/P2Y12 inhibit, Statin/lipid, Beta maryana H/O mental health issues: depression, anxiety, or addiction?: No Doesn?t believe in the benefits of treatment?: No Believes medications are unnecessary or harmful?: No Has a concern about medication side effects?: No Expresses concern over the cost of medications?: No Outcomes/Goals: Verbalizes medications,desired effect & common side effects @ DC, Pt self-reports following medication regimen, Keeps card in wallet w/medications listed by DC Interventions/plans: Instruct on medication effects & side effects, Review medication list w/patient every two weeks, Instruct importance of taking meds as ordered & assist problem solving - Tobacco Use Tobacco Use: Non-smoker - Hypertension Resting Blood Pressure:: 132/66 [place] [employer] Hypertension Guidelines: [place] [employer] Hypertension Guidelines. Normal BP Less than 120/80. Elevated BP 120/80. Hypertension Stage 1: BP 130-139/80-89. Hypertesnion Stage 2: BP 140 or higher/90 or higher. Hypertension Crisis: BP higher than 180/120 Outcomes/Goals: Able to verbalize/achieve optimal blood pressure <130/80, Incorporates diet changes & exercise for blood pressure control by DC Interventions/plan: Instruct on optimal blood pressure, hypertension & medications, Instruct on effects of sodium, alcohol, stress, exercise &hypertension - Tobacco Cessation Referral Smoking Cessation Referral:: No Individual Education/Counseling:: No Education Schedule Given:: Yes Core - 30-Day Assessment Core - 60-Day Assessment Core - 90 Day Assessment Core - Final Assessment Psychosocial - Initial Assess - VIsit Date of Eval: 07/12/22 Session #:: 0 - Pre-cardiac rehab evaluation Not Applicable: Yes History of previous Mental disease:: No - Psychosocial Test Tool Used:: Amaury Pascal QOL Cardiac, PHQ-9 Questionnaire phq-9 Severity: Severity. 1-4 Minimal Depression. 5-9 Mild Depression. 10-14 Moderate Depression. 15-19 Moderately Sever Depression. 20-27 Severe Depression. Rule: - Referral to Behavioral Health PS - Interventions: Yes Attend Stress Management Classes, No Referral to Behavioral Health if PHQ-9 score >9:, No Referral to [facility], No Referral to Physician if PHQ-9 if score is 5-9: - Outcomes/Goals: See list Psychosocial Outcomes/Goals:: ID's personal stressors & 2 strategies to manage stress by discharge - Intervention/Plan: See List Interventions/Plan:: Assess stressors,coping strategies & signs of derpression on admission, Instruct/assist pt to develop coping & personal stress Mgt strategies, Instruct patient to recognize signs & symptoms of depression, Instruct patient to recog Psychosocial - 30-Day Assess Psychosocial - 60-Day Assess Psychosocial - 90-Day Assess Psychosocial - Final Assessmen Patient Health Questionnaire Initial Assessment 1. Little interest or pleasure in doing things: Not at all 2. Feeling down, depressed, or hopeless: Not at all 3. Trouble falling or staying asleep, or sleeping too much: Not at all 4. Feeling tired or having little energy: Several days 5. Poor appetite or overeating: Not at all 6. Feeling bad about yourself -- or that you are a failure or have let yourself or your family down: Not at all 7. Trouble concentrating on things, such as reading the newspaper or watching television: Not at all 8. Moving or speaking so slowly that other people could have noticed. Or the opposite - being so fidgety or restless that you have been moving around a lot more than usual: Not at all 9. Thoughts that you would be better off , or of hurting yourself in some way: Not at all How difficult have these problems made it for you to do your work, take care of things at home, or get along with other people?: Not difficult at all Total Score: 1 YAQUELIN-Q SV Test - Statements CAD is a disease of the arteries in the heart: True Examples of risk factors for heart disease: True Angina is chest pain or discomfort: True The benefits of resistance training include: True Eating more meat and dairy products: False Anti-platelet medications such as aspirin are important: True The only effective way to manage stress: False An exercise warm-up slowly increases heart rate: False Prepared, processed foods usually have high sodium: True Depression is common after a heart attack: False The statin medications lower cholesterol: I Don't Know To control blood pressure, lower the amount of sodium: True If someone gets chest discomfort during walking: False Transfats are partially hydrogenated vegetable oils: True Sleep apnea that is not treated increases the risk: I Don't Know To control cholesterol, one should become a vegetarian: False Someone knows if he/she is exercising at the right level: False Diabetes cannot be prevented with exercise & health eating: False Stress is a large risk for heart attack: True A diet that can help lower blood pressure is rich in: True - Total Score Total Correct Responses: 14 Self-Efficacy Initial Assessment We would like to know how confident you are in doing certain activities. Please select your confidence level for:: Select your confidence level for the following using the scale 1-10 where 1 is not at all confident and 10 is totally confident. Your score is the average of all 6 responses. Fatigue: How confident are you that you can keep the fatigue caused by your disease from interfering with the things you want to do? Select Number: 9 Physical Discomfort or Pain: How confident are you that you can keep the physical discomfort or pain of your disease from interfering with the things you want to do? Select Number: 10 Emotional Distress: How confident are you that you can keep the emotional distress caused by your disease from interfering with the things you want to do? Select Number: 10 Other Symptoms or Health Problems: How confident are you that you can keep other symptoms or health problems from interfering with the things you want to do? Select Number: 10 Different Tasks and Activities: How confident are you that you can do the different tasks and activities needed to manage your health condition so as to reduce your need to see a doctor? Select Number: 10 Medication: How confident are you that you can do things other than just taking medication to reduce how much your illness affects your everyday life? Select Number: 10 Total Score:: 9 Nutrition Survey - Nutrition Survey Initial Have you lost >10 lbs over the past 2 months without trying?: No Are you following a special diet at home for diabetes, low fat, or low salt?: No Are you interested in meeting with a dietitian for help understanding your diet?: No Do you eat less than 3 meals a day?: Yes Do you eat fatty meats (evans, sausage, ribs, etc), fried foods, desserts, large amounts of salad dressings, margarine, butter, or cheese most days?: No Do you have food allergies? [Enter types in comment field]: No Do you eat in restaurants more than 3 times a week?: No Do you season food with salt, seasoning salt, or garlic salt?: No Do you used canned, boxed, frozen meals, or soups, seasoning packets?: No Total Score:: 1
[2022-07-12 10:11] VITALS: BP 132/68; PULSE 66; RESP 14; TEMP 36.6; O2SAT 98; BMI 31.4
[2022-07-12 10:20] VITALS: BP 132/66; BMI 31.4
== END | disposition home or self-care (01) ==
PROVIDERS: PCP Family Medicine Geriatric Medicine; Visit Provider Internal Medicine Cardiovascular Disease
DX: I21.3 ST elevation (STEMI) myocardial infarction of unspecified site (principal); E78.5 Hyperlipidemia, unspecified; E87.6 Hypokalemia; I10 Essential (primary) hypertension; R06.83 Snoring

== ENCOUNTER → 2022-07-19 | Outpatient (CLI) | payer OTHER, SELFPAY ==
[2022-07-12 10:20] VITALS: BMI 31.4
[2022-07-19 17:12] LABS: Anion Gap 9 (5-15); BUN 18 mg/dL (7-18); BUN/Creat Ratio 17.6 RATIO (10-20); Calcium,Total 9.2 mg/dL (8.5-10.1); Chloride 106 mmol/L (98-107); Creatinine, Serum 1.02 mg/dL (0.70-1.30); EST Glomerular Filtration Rate 80 mL/min (>60); Est Glom Filt Rate - Afr Amer 97 mL/min (>60); Glucose 89 mg/dL (74-106); Potassium 3.9 mmol/L (3.5-5.1); Sodium Level 140 mmol/L (136-145)
== END | disposition home or self-care (01) ==
LOC: LAB 16:05
PROVIDERS: PCP Family Medicine Geriatric Medicine; Visit Provider Internal Medicine Cardiovascular Disease
DX: E87.6 Hypokalemia (principal); I10 Essential (primary) hypertension
CPT/HCPCS: 36415; 80048

== ENCOUNTER → 2022-07-23 | Outpatient (CLI) | payer OTHER, SELFPAY ==
[2022-07-12 10:20] VITALS: BMI 31.4
[2022-07-23 18:11] LABS: Absolute Lymphocyte Count 1.67 X10^3/uL (0.83-4.51); Absolute Neutrophil Count 5.1 X10^3/uL (2.0-7.7); Basophil# 0.04 X10^3/uL; Basophil% 0.5 % (0-1); Eosinophil# 0.21 X10^3/uL; Eosinophils% 2.6 % (0-5); Hematocrit 41.4 % (40-54); Hemoglobin 13.5 g/dL (13.0-16.5); Lymphocyte # 1.67 X10^3/ul (0.83-4.51); Mean Corp Hgb Conc 32.6 g/dL (32-36); Mean Corpuscular Hgb 31.3 pg (27.0-32.0); Mean Corpuscular Volume 96.1 fL (80-94); Mean Platelet Vol. 11.5 fl (6.2-12.0); Monocyte% 11.3 % (0-10); NRBC Flagged by Analyzer 0 % (0-5); Neutrophil % 64.1 % (47-70); Platelet Count 227 K/mm3 (150-450); RBC Distribution Width CV 12.3 % (11.6-14.6); RBC Distribution Width SD 43.6 fl (35.1-43.9); Red Blood Count 4.31 M/mm3 (4.6-6.2)
[2022-07-23 18:53] LABS: AST(SGOT) 30 U/L (15-37); Alanine Aminotransfer ALT/SGPT 65 U/L (16-61); Albumin, Serum 3.6 g/dL (3.2-5.0); Alkaline Phosphatase 119 U/L (45-117); Anion Gap 9 (5-15); BUN 17 mg/dL (7-18); BUN/Creat Ratio 17.2 RATIO (10-20); Chloride 105 mmol/L (98-107); Creatinine, Serum 0.99 mg/dL (0.70-1.30); EST Glomerular Filtration Rate 83 mL/min (>60); Est Glom Filt Rate - Afr Amer 101 mL/min (>60); Globulin 3.7 g/dL (2.2-4.2); Glucose 93 mg/dL (74-106); Potassium 3.7 mmol/L (3.5-5.1); Protein, Total 7.3 g/dL (6.4-8.2); Sodium Level 140 mmol/L (136-145); Thyroid Stim Hormone (TSH) 2.21 uIU/mL (0.358-3.74)
== END | disposition home or self-care (01) ==
LOC: POLAB3 15:57
PROVIDERS: PCP Family Medicine Geriatric Medicine; Visit Provider Family Medicine Geriatric Medicine
DX: E11.65 Type 2 diabetes mellitus with hyperglycemia (principal); I10 Essential (primary) hypertension; Z12.5 Encounter for screening for malignant neoplasm of prostate
CPT/HCPCS: 36415; 80053; 84443; 85025

== ENCOUNTER → 2022-08-02 | Outpatient (CLI) | payer OTHER, SELFPAY ==
[2022-07-12 10:20] VITALS: BMI 31.4
--- NOTE | 2022-08-02 07:54 | RDU_ITS ---
Reason For Study: Hypertension Right Renal Artery Left Renal Artery Right renal artery ostium Left renal artery ostium 261.0/75.9 221.9/69.9 RSV/EDV. PSV/EDV. Right renal artery proximal Left renal artery proximal PSV/EDV 133.7/37.8 PSV/EDV. 206.7/61.8 . Right renal artery mid 188.1/74.1 Left renal artery mid 158.1/38.4 PSV/EDV. PSV/EDV . Right renal artery distal Left renal artery distal 170.7/35.3 164.8/63.7 PSV/EDV. PSV/EDV. Right RAR 2.64. Left RAR 3.10. Right Renal Parenchyma Left Renal Parenchyma Upper Pole Medula 23.1/8.4 PSV/EDV. Left upper pole medulla 43.4/16.9 Right upper pole medulla EDR 0.40 . PSV/EDV . Right upper pole medulla R.I. Left upper pole medulla EDR 0.40 . 0.64 . Left upper pole medulla R.I. 0.61 . Upper Nikos Cortx 21.9/8.4 PSV/EDV. UP Cortex 25.5/7.1 PSV/EDV. Right upper pole cortex EDR 0.40 . Left upper pole cortex EDR 0.30 . Right upper pole cortex R.I. 0.62 . Left upper pole cortex R.I. 0.72 . Right lower Pole medulla 31.1/12.0 Left lower Pole medulla 28.0/11.4 PSV/EDV . PSV/EDV . Right lower pole medulla EDR 0.40 . Left lower pole medulla EDR 0.40 . Right lower pole medulla R.I. Left lower pole medulla R.I. 0.59 . 0.61 . Lower Pole Cortx 27.4/10.2 PSV/EDV. Lower Pole Cortex 21.2/8.4 PSV/EDV. Left lower pole cortex EDR 0.30 . Right lower pole cortex EDR 0.40 . Left lower pole cortex R.I. 0.63 . Right lower pole cortex R.I. 0.61 . Left Renal Hilar Right Renal Hilar LT Hilar avg 71.7/30.9 PSV/EDV . Right Hilar avg 80.6/35.1 PSV/EDV. Left hilar acceleration time 40 Right hilar acceleration time 30 m/sec. m/sec. Left Renal Dimensions Right Renal Dimensions Left kidney size 12.52 cm . Right kidney size 12.54 cm . Left cortical dimension 1.78 cm . Right cortical dimension 1.66 cm . Aorta Proximal abdominal aorta 3.18 x 3.21 cm . Prox AO long 3.10 cm. Proximal abdominal aorta peak systolic velocity is 66.0 cm/sec . Distal abdominal aorta 1.78 x 1.75 cm . Distal abdominal aorta peak systolic velocity is 84.2 cm/sec . VL/Renal Artery Duplex Ultrasound Interpretation Summary Right renal artery patent with elevated velocities but with normal renal-aortic ratio indicating no significant stenosis. Left renal artery patent with elevated velocities but with normal renal-aortic ratio indicating no significant stenosis. 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
== END | disposition home or self-care (01) ==
LOC: CVS 07:53
PROVIDERS: PCP Family Medicine Geriatric Medicine; Referring Provider Physician Assistant Medical; Visit Provider Physician Assistant Medical
DX: I10 Essential (primary) hypertension (principal); I25.10 Atherosclerotic heart disease of native coronary artery without angina pectoris; E78.5 Hyperlipidemia, unspecified; Z95.5 Presence of coronary angioplasty implant and graft
CPT/HCPCS: 93975

== ENCOUNTER 2022-08-09 15:45 | Outpatient (RCR) | payer OTHER, SELFPAY ==
[2022-07-12 10:20] VITALS: BMI 31.4
== END 2022-08-09 23:59 ==
LOC: CR 15:45
PROVIDERS: PCP Family Medicine Geriatric Medicine; Visit Provider Internal Medicine Cardiovascular Disease
DX: Z95.5 Presence of coronary angioplasty implant and graft (principal); I25.2 Old myocardial infarction
CPT/HCPCS: 93798

== ENCOUNTER 2022-09-04 15:45 | Outpatient (RCR) | payer BC, OTHER, SELFPAY ==
[2022-07-12 10:20] VITALS: BMI 31.4
== END 2022-09-08 23:59 ==
LOC: CR 15:45
PROVIDERS: PCP Family Medicine Geriatric Medicine; Visit Provider Internal Medicine Cardiovascular Disease
DX: I25.2 Old myocardial infarction (principal); Z95.5 Presence of coronary angioplasty implant and graft
CPT/HCPCS: 93798

== ENCOUNTER 2022-10-09 15:15 | Outpatient (RCR) | payer OTHER, SELFPAY ==
[2022-07-12 10:20] VITALS: BMI 31.4
--- NOTE | 2022-09-13 10:11 | CR.ITP_ITS ---
Diagnosis Exercise - 60-day Assessment - Visit Date of Eval: 09/13/22 Session #:: 20 - Physician Prescribed Exercise Modalities: Treadmill, Rower, Airdyne, NuStep, SciFit, Lateral [place] Frequency: 3x/week for 12 weeks [36 sessions] Intensity: 60-80% of age predicted maximum heart rate reserve Current METSs:: 8.5 Target Heart Rate:: 123-139 Current RPE:: 12-13 Maximum Excercise HR:: 119 Resting Blood Pressure: 132/80 Maximum Exercise Blood Pressure: 188/82 - Outcomes & Goals Goals:: Verbalizes understanding of THR, RPE & goal METS by session 6, Documents in home exercise log/reports 30 min aerobic 5 day/wk by DC, Demonstrates accurate pulse taking by DC, Other additional outcome/goals: see below - Intervention & Plan Exercise Program Goals: Instruct on personal THR & RPE, Instruct on MET level & personal MET goal, Show patient to take own pulse /validate performance until accurate, Instruct on home exercise, Other additional plan/int - 30-day Reassessments 30 day Reassessments:: Progressing - Physical Activity Home Exercise Physical Activity - Home Exercise: Safe Exercise, Warm-up, Self-monitoring, Cool-Down, Home Exercise > 30 min Daily, Sitting Time <3 hours/daily - Outcomes & Goals Outcomes/Goals: Demonstrates correct Warm-up/exercise Cool-Down (S3) if = 2.5 METs, Verbalizes symptoms of exercise intolerance by Session 3 (S3), Demonstrate safe equipment use (S3) & follows exercise prescrition (6), Other: See below - Intervention & Plan Plan/Intervention: Instruct warm-up & cool-down if exercising at > 2 METs, Instruct on symptoms of exercise intolerance & actions to take, Instruct & monitor on saf, Assess intial functional capacity & safety risk, Other See below - 30-day Reassessments 30 day Reassessments:: Progressing Nutrition - Initial Assessment Nutrition - 30-Day Assessment Nutrition - 60-Day Assessment - Program Goals Nutrition Program Goals: LDL <100 optimal. 100 - 129 Near optimal. 130 - 159 Borderline High. 160 - 189 High. Total Cholesterol <200 desirable. 200 - 239 Borderline High. >/= 240 High. HDL < 40 Low >/=60 High. Triglycerides <150 desirable. <199 optimal. VlDL 5 - 40. HgbA1C <7%. BMI <25 Patient has diagnosis of Hyperlipidemia (ICD E78)?: Yes - Visit Date of Assessment:: 09/13/22 Session #:: 20 - Cholesterol/Lipids (Other Core Measures) Determine presence & major risk factors that modify LDL goal: Cigarette smoking, Hypertension or hypertensive medication, Low HDL cholesterol <40 mg/dL*, Family history of premature CHD in Male < 55 years: female <65 yearsFa, Age men > 45 years; women >/= 55 years Outcomes/Goals: Pt IDs own risk factors & lifestyle modifications by Session 10, Verbalizes symptoms of angina & response by session 3., Pt independently manages, Other Additional Outcomes/Goals: Intervention/Plan: Advocate for lipid panel cholesterol medication if applicable, Instruct on personal lipid levels & lipid goals/NCEP guidelines, Instruct on cholesterol, Other additional plan/int 30-day Reassessments:: Progressing - Diabetes (Other Core Measures) Diabetes Type: Not Applicable - Weight Mgt (Other Care) Height: 5 ft 11 in Weight:: 105.233 kg BMI: 32.3 Outcomes/Goals: Pt sets, maintains & shows weight loss goal & trend during rehab, Other additional outcomes/goals Intervention/Plan: Instruct on ideal BMI & set weight loss goal w/patient, Assist pt to ID & incorporate diet changes for weight loss by S9, Refer to Structured Weight Loss program as appropriate, Encourage goal of using 250- 300dcal per session for weight loss, Other additional plan/interventions 30 day Reassessments:: Progressing - Healthy Eating Habits Will attend diet classes:: Yes Intervention/Plan:: Assess current eating habits, Other Additional plan/interventions 30-day Reassessments:: Progressing - Education Gave educational materials for:: Signs & symptoms of hypoglycemia, Signs & symptoms of hyperglycemia, Relate diabetes to coronary artery disease, Healthy eating Nutrition - 90-Day Assessment Nutrition - Final Assessment Core - Initial Assessment Core - 30-Day Assessment Core - 60-Day Assessment - Visit Date of Eval: 09/13/22 Session #:: 20 - Medication Compliance Preventative Medication(s):: Aspirin, Clopidogrel/P2Y12 inhibit, Statin/lipid, Beta maryana Doesn?t believe in the benefits of treatment?: No Believes medications are unnecessary or harmful?: No Has a concern about medication side effects?: No Expresses concern over the cost of medications?: No Outcomes/Goals: Verbalizes medications,desired effect & common side effects @ DC, Pt self-reports following medication regimen, Keeps card in wallet w/medications listed by DC, Other additional outcome/goals: 30-day Reassessments:: Progressing - Tobacco Use Tobacco Use: Non-smoker - Hypertension Resting Blood Pressure:: 132/80 [place] [employer] Hypertension Guidelines: [place] [employer] Hypertension Guidelines. Normal BP Less than 120/80. Elevated BP 120/80. Hypertension Stage 1: BP 130-139/80-89. Hypertesnion Stage 2: BP 140 or higher/90 or higher. Hypertension Crisis: BP higher than 180/120 Peak Exercise Blood Pressure:: 188/82 Outcomes/Goals: Able to verbalize/achieve optimal blood pressure <130/80, Incorporates diet changes & exercise for blood pressure control by DC, Other additional outcomes/goals Interventions/plan: Instruct on optimal blood pressure, hypertension & medications, Instruct on effects of sodium, alcohol, stress, exercise &hypertension, Other additional plan/interventions 30 day Reassessments:: Progressing - Tobacco Cessation Referral Smoking Cessation Referral:: No Individual Education/Counseling:: No Education Schedule Given:: Yes Core - 90 Day Assessment Core - Final Assessment Psychosocial - Initial Assess Psychosocial - 30-Day Assess Psychosocial - 60-Day Assess - VIsit Date of Eval: 09/13/22 Session #:: 20 History of previous Mental disease:: No Psychosocial - 90-Day Assess Psychosocial - Final Assessmen Patient Health Questionnaire 60-Day Re-eval Assessment 1. Little interest or pleasure in doing things: Not at all 2. Feeling down, depressed, or hopeless: Not at all 3. Trouble falling or staying asleep, or sleeping too much: Not at all 4. Feeling tired or having little energy: Several days 5. Poor appetite or overeating: Not at all 6. Feeling bad about yourself -- or that you are a failure or have let yourself or your family down: Not at all 7. Trouble concentrating on things, such as reading the newspaper or watching television: Not at all 8. Moving or speaking so slowly that other people could have noticed. Or the opposite - being so fidgety or restless that you have been moving around a lot more than usual: Not at all 9. Thoughts that you would be better off , or of hurting yourself in some way: Not at all How difficult have these problems made it for you to do your work, take care of things at home, or get along with other people?: Not difficult at all Total Score: 1 Self-Efficacy 60-Day Re-eval Assessment We would like to know how confident you are in doing certain activities. Please select your confidence level for:: Select your confidence level for the following using the scale 1-10 where 1 is not at all confident and 10 is totally confident. Your score is the average of all 6 responses. Fatigue: How confident are you that you can keep the fatigue caused by your disease from interfering with the things you want to do? Select Number: 9 Physical Discomfort or Pain: How confident are you that you can keep the physical discomfort or pain of your disease from interfering with the things you want to do? Select Number: 10 Emotional Distress: How confident are you that you can keep the emotional distress caused by your disease from interfering with the things you want to do? Select Number: 10 Other Symptoms or Health Problems: How confident are you that you can keep other symptoms or health problems from interfering with the things you want to do? Select Number: 10 Different Tasks and Activities: How confident are you that you can do the different tasks and activities needed to manage your health condition so as to reduce your need to see a doctor? Select Number: 10 Medication: How confident are you that you can do things other than just taking medication to reduce how much your illness affects your everyday life? Select Number: 10 Total Score:: 9 Nutrition Survey
[2022-09-13 10:16] VITALS: BP 132/80; BP 188/82; BMI 32.3
== END 2022-10-09 23:59 ==
LOC: CR 15:15
PROVIDERS: PCP Family Medicine Geriatric Medicine; Visit Provider Internal Medicine Cardiovascular Disease
DX: Z95.5 Presence of coronary angioplasty implant and graft; I21.3 ST elevation (STEMI) myocardial infarction of unspecified site
CPT/HCPCS: 93798

== ENCOUNTER 2022-10-11 15:32 | Outpatient (RCR) | payer BC, SELFPAY ==
[2022-09-13 10:16] VITALS: BMI 32.3
--- NOTE | 2022-10-14 11:28 | CR.ITP_ITS ---
Diagnosis Exercise - 90-day Assessment - Visit Date of Eval: 10/14/22 Session #:: 30 - Physician Prescribed Exercise Modalities: Treadmill, Airdyne, NuStep Frequency: 3x/week for 12 weeks [36 sessions] Intensity: 60-80% of age predicted maximum heart rate reserve Current METSs:: 9.5 Target Heart Rate:: 123-139 Current RPE:: 12-13 Maximum Excercise HR:: 123 Resting Blood Pressure: 150/98 Maximum Exercise Blood Pressure: 192/100 EKG Type: NSR to ST w/occas multifocal PVC/PAC. freq vent bigeminy and trigeminy and - Outcomes & Goals Goals:: Verbalizes understanding of THR, RPE & goal METS by session 6, Documents in home exercise log/reports 30 min aerobic 5 day/wk by DC, Demonstrates accurate pulse taking by DC, Other additional outcome/goals: see below - Intervention & Plan Exercise Program Goals: Instruct on personal THR & RPE, Instruct on MET level & personal MET goal, Show patient to take own pulse /validate performance until accurate, Instruct on home exercise, Other additional plan/int - 30-day Reassessments 30 day Reassessments:: Met - Physical Activity Home Exercise Physical Activity - Home Exercise: Safe Exercise, Warm-up, Self-monitoring, Cool-Down, Home Exercise > 30 min Daily, Sitting Time <3 hours/daily - Intervention & Plan Plan/Intervention: Instruct warm-up & cool-down if exercising at > 2 METs, Instruct on symptoms of exercise intolerance & actions to take, Instruct & julia tor on saf, Assess intial functional capacity & safety risk, Other See below - 30-day Reassessments 30 day Reassessments:: Met Nutrition - Initial Assessment Nutrition - 30-Day Assessment Nutrition - 60-Day Assessment Nutrition - 90-Day Assessment - Program Goals Nutrition Program Goals: LDL <100 optimal. 100 - 129 Near optimal. 130 - 159 Borderline High. 160 - 189 High. Total Cholesterol <200 desirable. 200 - 239 Borderline High. >/= 240 High. HDL < 40 Low >/=60 High. Triglycerides <150 desirable. <199 optimal. VlDL 5 - 40. HgbA1C <7%. BMI <25 Patient has diagnosis of Hyperlipidemia (ICD E78)?: Yes - Visit Date of Assessment:: 10/14/22 Session #:: 30 - Cholesterol/Lipids (Other Core Measures) Determine presence & major risk factors that modify LDL goal: Cigarette smoking, Hypertension or hypertensive medication, Low HDL cholesterol <40 mg/dL*, Family history of premature CHD in Male < 55 years: female <65 yearsFa, Age men > 45 years; women >/= 55 years Outcomes/Goals: Pt IDs own risk factors & lifestyle modifications by Session 10, Verbalizes symptoms of angina & response by session 3., Pt independently manages, Other Additional Outcomes/Goals: Intervention/Plan: Advocate for lipid panel cholesterol medication if applicable, Instruct on personal lipid levels & lipid goals/NCEP guidelines, Instruct on cholesterol, Other additional plan/int Referral to dietitian:: No 30-day Reassessments:: Met - Diabetes (Other Core Measures) Diabetes Type: Not Applicable - Weight Mgt (Other Care) Height: 5 ft 11 in Weight:: 104.553 kg BMI: 32.1 Diagnosis Overweight/Obesity BMI> 30% ICD-10 E66: Yes Diagnosis High BMI/Morbid Obesity BMI> 35% ICD-10 Z68: No Outcomes/Goals: Pt sets, maintains & shows weight loss goal & trend during rehab, Other additional outcomes/goals Intervention/Plan: Instruct on ideal BMI & set weight loss goal w/patient, Assist pt to ID & incorporate diet changes for weight loss by S9, Refer to Structured Weight Loss program as appropriate, Encourage goal of using 250- 300dcal per session for weight loss, Other additional plan/interventions 30 day Reassessments:: Met - Healthy Eating Habits Will attend diet classes:: Yes Outcomes/Goals:: Consume diet rich in vegs,fruits,whole grain/high fiber,fish,lean meat, Limit sat/trans fats,cholesterol & added salts & sugars, Other additional outcome/goals: 30-day Reassessments:: Met - Education Gave educational materials for:: Signs & symptoms of hypoglycemia, Signs & symptoms of hyperglycemia, Relate diabetes to coronary artery disease, Healthy eating Nutrition - Final Assessment Core - Initial Assessment Core - 30-Day Assessment Core - 60-Day Assessment Core - 90 Day Assessment - Visit Date of Eval: 10/14/22 Session #:: 30 - Medication Compliance Preventative Medication(s):: Aspirin, Clopidogrel/P2Y12 inhibit, Statin/lipid, Beta maryana H/O mental health issues: depression, anxiety, or addiction?: No Doesn?t believe in the benefits of treatment?: No Believes medications are unnecessary or harmful?: No Has a concern about medication side effects?: No Expresses concern over the cost of medications?: No Outcomes/Goals: Verbalizes medications,desired effect & common side effects @ DC, Pt self-reports following medication regimen, Keeps card in wallet w/medications listed by DC, Other additional outcome/goals: Interventions/plans: Instruct on medication effects & side effects, Review medication list w/patient every two weeks, Instruct importance of taking meds as ordered & assist problem solving, Other additional 30-day Reassessments:: Met - Tobacco Use Tobacco Use: Non-smoker - Hypertension Hypertension Diagnosis:: Hypertension ICD-10 I10 Resting Blood Pressure:: 150/98 [place] [employer] Hypertension Guidelines: [place] [employer] Hypertension Guidelines. Normal BP Less than 120/80. Elevated BP 120/80. Hypertension Stage 1: BP 130-139/80-89. Hypertesnion Stage 2: BP 140 or higher/90 or higher. Hypertension Crisis: BP higher than 180/120 Peak Exercise Blood Pressure:: 192/100 Outcomes/Goals: Able to verbalize/achieve optimal blood pressure <130/80, Incorporates diet changes & exercise for blood pressure control by DC, Other additional outcomes/goals Interventions/plan: Instruct on optimal blood pressure, hypertension & medications, Instruct on effects of sodium, alcohol, stress, exercise &hypertension, Other additional plan/interventions 30 day Reassessments:: Deshawn Contreras has had BP med changes with some improvement. Will continue to monitor Core - Final Assessment Psychosocial - Initial Assess Psychosocial - 30-Day Assess Psychosocial - 60-Day Assess Psychosocial - 90-Day Assess - VIsit Date of Eval: 10/14/22 Session #:: 30 History of previous Mental disease:: No Psychosocial - Final Assessmen Patient Health Questionnaire 90-Day Re-eval Assessment 1. Little interest or pleasure in doing things: Not at all 2. Feeling down, depressed, or hopeless: Not at all 3. Trouble falling or staying asleep, or sleeping too much: Not at all 4. Feeling tired or having little energy: Several days 5. Poor appetite or overeating: Not at all 6. Feeling bad about yourself -- or that you are a failure or have let yourself or your family down: Not at all 7. Trouble concentrating on things, such as reading the newspaper or watching television: Not at all 8. Moving or speaking so slowly that other people could have noticed. Or the opposite - being so fidgety or restless that you have been moving around a lot m ore than usual: Not at all 9. Thoughts that you would be better off , or of hurting yourself in some way: Not at all How difficult have these problems made it for you to do your work, take care of things at home, or get along with other people?: Not difficult at all Total Score: 1 Self-Efficacy 90-Day Re-eval Assessment We would like to know how confident you are in doing certain activities. Please select your confidence level for:: Select your confidence level for the following using the scale 1-10 where 1 is not at all confident and 10 is totally confident. Your score is the average of all 6 responses. Fatigue: How confident are you that you can keep the fatigue caused by your disease from interfering with the things you want to do? Select Number: 9 Physical Discomfort or Pain: How confident are you that you can keep the physical discomfort or pain of your disease from interfering with the things you want to do? Select Number: 10 Emotional Distress: How confident are you that you can keep the emotional distress caused by your disease from interfering with the things you want to do? Select Number: 10 Other Symptoms or Health Problems: How confident are you that you can keep other symptoms or health problems from interfering with the things you want to do? Select Number: 10 Different Tasks and Activities: How confident are you that you can do the different tasks and activities needed to manage your health condition so as to reduce your need to see a doctor? Select Number: 10 Medication: How confident are you that you can do things other than just taking medication to reduce how much your illness affects your everyday life? Select Number: 10 Total Score:: 9 Nutrition Survey
[2022-10-14 11:38] VITALS: BP 150/98; BP 192/100; BMI 32.1
== END 2022-11-08 23:59 ==
LOC: CR 15:32
PROVIDERS: PCP Family Medicine Geriatric Medicine; Visit Provider Internal Medicine Cardiovascular Disease
DX: Z95.5 Presence of coronary angioplasty implant and graft (principal); I21.3 ST elevation (STEMI) myocardial infarction of unspecified site
CPT/HCPCS: 93798

== ENCOUNTER 2022-10-25 15:45 | Outpatient (RCR) | payer BC, SELFPAY ==
[2022-09-13 10:16] VITALS: BMI 32.3
[2022-10-10 00:35] VITALS: BP 132/80; BP 188/82
== END 2022-11-08 23:59 ==
LOC: CR 15:45
PROVIDERS: PCP Family Medicine Geriatric Medicine; Visit Provider Internal Medicine Cardiovascular Disease
DX: I21.3 ST elevation (STEMI) myocardial infarction of unspecified site (principal); Z95.5 Presence of coronary angioplasty implant and graft
CPT/HCPCS: 93798

== ENCOUNTER → 2022-12-26 | Outpatient (CLI) | payer BC, SELFPAY ==
[2022-12-26 17:04] LABS: Absolute Lymphocyte Count 2.07 X10^3/uL (0.83-4.51); Absolute Neutrophil Count 6.3 X10^3/uL (2.0-7.7); Basophil# 0.06 X10^3/uL; Basophil% 0.6 % (0-1); Eosinophil# 0.16 X10^3/uL; Eosinophils% 1.7 % (0-5); Hematocrit 42.2 % (40-54); Hemoglobin 13.9 g/dL (13.0-16.5); Lymphocyte # 2.07 X10^3/ul (0.83-4.51); Mean Corp Hgb Conc 32.9 g/dL (32-36); Mean Corpuscular Hgb 32.6 pg (27.0-32.0); Mean Corpuscular Volume 98.8 fL (80-94); Mean Platelet Vol. 11.1 fl (6.2-12.0); Monocyte# 0.81 X10^3/uL; Monocyte% 8.6 % (0-10); NRBC Flagged by Analyzer 0 % (0-5); Neutrophil # 6.25 X10^3/uL (2.7-7.7); Neutrophil % 66.7 % (47-70); Platelet Count 239 K/mm3 (150-450); RBC Distribution Width CV 11.9 % (11.6-14.6); RBC Distribution Width SD 43.2 fl (35.1-43.9); Red Blood Count 4.27 M/mm3 (4.6-6.2); White Blood Count 9.4 K/mm3 (4.4-11.0)
[2022-12-26 17:40] LABS: ALB/GLOB Ratio 1.1 RATIO (0.9-2.4); AST(SGOT) 21 U/L (15-37); Alanine Aminotransfer ALT/SGPT 37 U/L (16-61); Alkaline Phosphatase 96 U/L (45-117); Anion Gap 9 (5-15); BUN 16 mg/dL (7-18); BUN/Creat Ratio 15.7 RATIO (10-20); Calcium,Total 9.4 mg/dL (8.5-10.1); Chloride 106 mmol/L (98-107); Creatinine, Serum 1.02 mg/dL (0.70-1.30); EST Glomerular Filtration Rate 80 mL/min (>60); Est Glom Filt Rate - Afr Amer 97 mL/min (>60); Globulin 3.6 g/dL (2.2-4.2); Glucose 102 mg/dL (74-106); PSA,Total - Annual Screen 1.43 ng/mL (0.00-4.00); Protein, Total 7.6 g/dL (6.4-8.2); Sodium Level 139 mmol/L (136-145)
== END | disposition home or self-care (01) ==
PROVIDERS: PCP Family Medicine Geriatric Medicine; Visit Provider Family Medicine Geriatric Medicine
DX: E11.65 Type 2 diabetes mellitus with hyperglycemia (principal); I10 Essential (primary) hypertension; Z12.5 Encounter for screening for malignant neoplasm of prostate
CPT/HCPCS: 36415; 80053; 84153; 84443; 85025; G0103

== ENCOUNTER → 2023-06-24 | Outpatient (CLI) | payer BC, SELFPAY ==
[2023-06-24 17:28] LABS: Absolute Lymphocyte Count 2.06 X10^3/uL (0.83-4.51); Absolute Neutrophil Count 4.7 X10^3/uL (2.0-7.7); Basophil# 0.04 X10^3/uL; Basophil% 0.5 % (0-1); Eosinophil# 0.14 X10^3/uL; Eosinophils% 1.8 % (0-5); Hematocrit 35.5 % (40-54); Lymphocyte # 2.06 X10^3/ul (0.83-4.51); Lymphocyte % 26.7 % (19-41); Mean Corp Hgb Conc 33.8 g/dL (32-36); Mean Corpuscular Hgb 33.2 pg (27.0-32.0); Mean Corpuscular Volume 98.3 fL (80-94); Monocyte# 0.74 X10^3/uL; Monocyte% 9.6 % (0-10); NRBC Flagged by Analyzer 0 % (0-5); Neutrophil # 4.72 X10^3/uL (2.7-7.7); Neutrophil % 61.1 % (47-70); Platelet Count 219 K/mm3 (150-450); RBC Distribution Width CV 12.1 % (11.6-14.6); RBC Distribution Width SD 44.3 fl (35.1-43.9); Red Blood Count 3.61 M/mm3 (4.6-6.2); White Blood Count 7.7 K/mm3 (4.4-11.0)
[2023-06-24 17:47] LABS: ALB/GLOB Ratio 1.2 RATIO (0.9-2.4); AST(SGOT) 27 U/L (15-37); Alanine Aminotransfer ALT/SGPT 47 U/L (16-61); Albumin, Serum 3.8 g/dL (3.2-5.0); Alkaline Phosphatase 81 U/L (45-117); Anion Gap 9 (5-15); BUN 21 mg/dL (7-18); Calcium,Total 9.1 mg/dL (8.5-10.1); Chloride 106 mmol/L (98-107); Creatinine, Serum 0.95 mg/dL (0.70-1.30); EST Glomerular Filtration Rate 86 mL/min (>60); Est Glom Filt Rate - Afr Amer 105 mL/min (>60); Globulin 3.2 g/dL (2.2-4.2); Glucose 98 mg/dL (74-106); Sodium Level 139 mmol/L (136-145); Thyroid Stim Hormone (TSH) 5.44 uIU/mL (0.358-3.74)
--- OUTSIDE RECORDS SUMMARY | 2023-06-24 20:15 | XMS RPT_ITS | CCD ---
Author Name Unknown Address [address] [place] [address] Organization [facility] Care Team Providers Care Roll Plugger Name Role Phone STEPHANIE BEAULIEU Attending Unavailable ELIGIO, CLAUDIA-CHI Primary Care Unavailable Results Test Name Value Interpretation Reference Range Facil ity Encounters Encounter Date Encounter Type Care Provider Facility Start: 09-01-2018 End: 09-02-2018 Patient encounter procedure STEPHANIE BEAULIEU Facility:A Payers Date Payer Category Payer Private Health Insurance [id number] 2018 Unknown [id number] 1965 Unknown [id number] Summary Purpose Family History No Family History Records Found Advance Directives No Advanced Directives Records Found Additional Source Comments (unrecognized sect ion and content) No Status Records Found INFORMATION SOURCE (unrecogn ized section and content) FOR RECORDS PERTAINING TO PATIENTS WHO ARE OR HAVE BEEN ENROLLED IN A CHEMICAL DEPENDENCY/SUBSTANCEABUSE PROGRAM, SOME INFORMATION MAY BE OMITTED. This clinical summary was aggregated from multiple sources. Caution should be exercised in using it in the provision of clinical care. This summary normalizes information from multiple sources, and as a consequence, information in this document may materially change the coding, format and clinical context of patient data. In addition, data may be omitted in some cases. CLINICAL DECISIONS SHOULD BE BASED ON THE PRIMARY CLINICAL RECORDS. [employer] provides no warranty or guarantee of the accuracy or completeness of information in this document.
== END | disposition home or self-care (01) ==
LOC: POLAB3 16:14
PROVIDERS: PCP Family Medicine Geriatric Medicine; Visit Provider Family Medicine Geriatric Medicine
DX: E11.65 Type 2 diabetes mellitus with hyperglycemia (principal); I10 Essential (primary) hypertension
CPT/HCPCS: 36415; 80053; 84443; 85025

== ENCOUNTER → 2023-12-30 | Outpatient (CLI) | payer BC, SELFPAY ==
[2023-12-30 16:53] LABS: Absolute Lymphocyte Count 2.11 X10^3/uL (0.83-4.51); Absolute Neutrophil Count 4.9 X10^3/uL (2.0-7.7); Basophil# 0.04 X10^3/uL; Basophil% 0.5 % (0-1); Eosinophil# 0.21 X10^3/uL; Eosinophils% 2.6 % (0-5); Hematocrit 37.4 % (40-54); Hemoglobin 12.7 g/dL (13.0-16.5); Lymphocyte # 2.11 X10^3/ul (0.83-4.51); Lymphocyte % 26.3 % (19-41); Mean Corpuscular Hgb 33.9 pg (27.0-32.0); Mean Corpuscular Volume 99.7 fL (80-94); Monocyte# 0.75 X10^3/uL; Monocyte% 9.3 % (0-10); NRBC Flagged by Analyzer 0 % (0-5); Neutrophil # 4.89 X10^3/uL (2.7-7.7); Neutrophil % 60.9 % (47-70); Platelet Count 211 K/mm3 (150-450); RBC Distribution Width CV 12.1 % (11.6-14.6); Red Blood Count 3.75 M/mm3 (4.6-6.2)
[2023-12-30 20:52] LABS: ALB/GLOB Ratio 1.1 RATIO (0.9-2.4); AST(SGOT) 28 U/L (15-37); Alanine Aminotransfer ALT/SGPT 39 U/L (16-61); Albumin, Serum 3.8 g/dL (3.2-5.0); Alkaline Phosphatase 85 U/L (45-117); Anion Gap 8 (5-15); BUN 18 mg/dL (7-18); BUN/Creat Ratio 16.7 RATIO (10-20); Calcium,Total 9.4 mg/dL (8.5-10.1); Chloride 106 mmol/L (98-107); Creatinine, Serum 1.08 mg/dL (0.70-1.30); EST Glomerular Filtration Rate 75 mL/min (>60); Est Glom Filt Rate - Afr Amer 90 mL/min (>60); Globulin 3.5 g/dL (2.2-4.2); Glucose 107 mg/dL (74-106); PSA,Total - Annual Screen 0.85 ng/mL (0.00-4.00); Potassium 3.9 mmol/L (3.5-5.1); Protein, Total 7.3 g/dL (6.4-8.2); Sodium Level 138 mmol/L (136-145)
== END | disposition home or self-care (01) ==
LOC: POLAB3 16:18
PROVIDERS: PCP Family Medicine Geriatric Medicine; Visit Provider Family Medicine Geriatric Medicine
DX: E11.65 Type 2 diabetes mellitus with hyperglycemia (principal); I10 Essential (primary) hypertension; E03.9 Hypothyroidism, unspecified; Z12.5 Encounter for screening for malignant neoplasm of prostate
CPT/HCPCS: 36415; 80053; 84153; 84443; 85025; G0103

== ENCOUNTER → 2024-01-19 | Outpatient (CLI) | payer BC, SELFPAY ==
--- NOTE | 2024-01-19 10:35 | RAD_ITS ---
INDICATION: PAIN EXAMINATION/TECHNIQUE: X-RAY - XR Spine Lumbar Min 4 Views COMPARISON: Prior study dated: 11/11/2013 MRI FINDINGS: VERTEBRAE: Preserved vertebral body height. No fracture. No spondylolisthesis. Preservation of the normal lumbar lordosis. Bilateral L5 pars defects. Grade 2 anterolisthesis of L5 on S1. This has progressed since the 2013 study. DISCS: Disc space narrowing at L4-L5 and L5-S1. INCLUDED ABDOMEN: Included bowel gas pattern is non-obstructive. RAD/L/S Spine Min 4 Views IMPRESSION: No evidence of lumbar spinal fracture L5 pars defects with grade 2 anterolisthesis of L5 on S1 which is progressed from prior.. Electronically Signed: Glenn Vilchis MD at 18:00 EDT ,
== END | disposition home or self-care (01) ==
PROVIDERS: PCP Family Medicine Geriatric Medicine; Referring Provider Family Medicine Geriatric Medicine; Visit Provider Family Medicine Geriatric Medicine
DX: M54.31 Sciatica, right side (principal); M54.50 Low back pain, unspecified
CPT/HCPCS: 72110

== ENCOUNTER → 2024-06-29 | Outpatient (CLI) | payer BC, SELFPAY ==
[2024-06-29 17:07] LABS: Absolute Lymphocyte Count 2.21 X10^3/uL (0.83-4.51); Absolute Neutrophil Count 6.3 X10^3/uL (2.0-7.7); Basophil# 0.06 X10^3/uL; Basophil% 0.6 % (0-1); Eosinophil# 0.13 X10^3/uL; Eosinophils% 1.3 % (0-5); Hematocrit 38.2 % (40-54); Hemoglobin 12.9 g/dL (13.0-16.5); Lymphocyte # 2.21 X10^3/ul (0.83-4.51); Lymphocyte % 22.9 % (19-41); Mean Corp Hgb Conc 33.8 g/dL (32-36); Mean Corpuscular Hgb 33.3 pg (27.0-32.0); Mean Corpuscular Volume 98.7 fL (80-94); Mean Platelet Vol. 10.7 fl (6.2-12.0); Monocyte# 0.93 X10^3/uL; Monocyte% 9.7 % (0-10); NRBC Flagged by Analyzer 0 % (0-5); Neutrophil # 6.25 X10^3/uL (2.7-7.7); Platelet Count 219 K/mm3 (150-450); RBC Distribution Width CV 12.3 % (11.6-14.6); RBC Distribution Width SD 44.1 fl (35.1-43.9); Red Blood Count 3.87 M/mm3 (4.6-6.2); White Blood Count 9.6 K/mm3 (4.4-11.0)
[2024-06-29 17:43] LABS: ALB/GLOB Ratio 1.1 RATIO (0.9-2.4); AST(SGOT) 22 U/L (15-37); Alanine Aminotransfer ALT/SGPT 39 U/L (16-61); Albumin, Serum 4.1 g/dL (3.2-5.0); Alkaline Phosphatase 91 U/L (45-117); Anion Gap 9 (5-15); BUN 22 mg/dL (7-18); BUN/Creat Ratio 16.5 RATIO (10-20); Calcium,Total 9.6 mg/dL (8.5-10.1); Chloride 104 mmol/L (98-107); Creatinine, Serum 1.33 mg/dL (0.70-1.30); EST Glomerular Filtration Rate 59 mL/min (>60); Est Glom Filt Rate - Afr Amer 71 mL/min (>60); Globulin 3.7 g/dL (2.2-4.2); Glucose 102 mg/dL (74-106); Potassium 4.1 mmol/L (3.5-5.1); Protein, Total 7.8 g/dL (6.4-8.2); Sodium Level 137 mmol/L (136-145)
== END | disposition home or self-care (01) ==
LOC: LAB 16:42
PROVIDERS: PCP Family Medicine Geriatric Medicine; Referring Provider Family Medicine Geriatric Medicine; Visit Provider Family Medicine Geriatric Medicine
DX: E11.65 Type 2 diabetes mellitus with hyperglycemia (principal); I10 Essential (primary) hypertension
CPT/HCPCS: 36415; 80053; 84443; 85025

== ENCOUNTER → 2024-09-20 | Outpatient (CLI) | payer BC, SELFPAY ==
--- NOTE | 2024-09-20 14:20 | RAD_ITS ---
PROCEDURE: L/S SPINE MIN 4 VIEWS 09/20/2024 REASON FOR EXAM: LOW BACK PAIN TECHNIQUE: Five views; AP, bilateral oblique, lateral and coned-down L5-S1 view COMPARISON: 01/19/2024 FINDINGS: Appearance of bilateral L5 spondylolysis again noted. Approximate 1.2 cm anterolisthesis L5 on S1, not significantly changed. Mild retrolisthesis L4 on L5 not significantly changed. Minimal retrolisthesis L3 on L4 again noted with [id number] disc space narrowing and degenerative endplate changes appearing mildly increased from the prior Aortoiliac atherosclerotic change Partially imaged left hip replacement. Vertebral body heights appear preserved. RAD/L/S Spine Min 4 Views IMPRESSION: Multilevel spondylosis/discogenic change with spondylolisthesis as above. Reading Location: [id number]
== END | disposition home or self-care (01) ==
LOC: RAD 14:18
PROVIDERS: PCP Family Medicine Geriatric Medicine; Referring Provider Family Medicine Geriatric Medicine; Visit Provider Family Medicine Geriatric Medicine
DX: M54.50 Low back pain, unspecified (principal)
CPT/HCPCS: 72110

== ENCOUNTER → 2024-10-02 | Outpatient (CLI) | payer BC, SELFPAY ==
--- NOTE | 2024-10-02 09:30 | MRI_ITS ---
PROCEDURE: SPINE LUMBAR (ROUTINE) 10/02/2024 REASON FOR EXAM: RADICULOPATHY TECHNIQUE: Multiplanar and multisequence images were obtained without IV contrast administration. COMPARISON: 09-20-2024 CR FINDINGS: Mild forward slippage of L5 over the sacrum, secondary to L5 pars interarticularis break. Straightened lumbar lordosis denoting myospasm. The rest of the examined vertebrae bodies and posterior neural arches show no fracture or dislocation with preserve vertebral bodies height. Multilevel marginal lipping and Modio II of the examined vertebral end plates Reduced bright T2 signal of the examined discs denoting their desiccation. T1-T11: a 2.5 mm central focal posterior disc protrusion. Indenting the theca. No neuroforaminal stenosis. T11-T12: There is no focal disc pathology, central canal stenosis or neural foraminal stenosis. T12-L1: There is no focal disc pathology, central canal stenosis or neural foraminal stenosis. L1-L2: There is no focal disc pathology, central canal stenosis or neural foraminal stenosis. L2-L3: a diffuse disc bulge with a 3 mm right foraminal disc protrusion seen indenting the theca and encroaching upon the related neural exit foramina and inducing moderate right and mild left exiting nerve root compression. L3-L4: a diffuse disc bulge with 5 mm right foraminal disc protrusion seen indenting the theca and encroaching upon the related neural exit foramina and inducing moderate right and mild left exiting nerve root compression. L4-L5: a diffuse disc bulge with 5.5 mm right foraminal disc protrusion seen indenting the theca and encroaching upon the related neural exit foramina and inducing moderate right and mild left exiting nerve root compression. L5-S1: a 1 mm diffuse disc bulge seen indenting the theca and encroaching upon the related neural exit foramina and inducing moderate exiting nerve root compression. The lower thoracic spinal cord, conus medullaris, and cauda equina nerve roots are unremarkable. No marrow infiltrative lesions. Paravertebral soft tissue is unremarkable. MRI/Spine Lumbar (Routine) IMPRESSION: Grade I lytic anterolithesis of L5 over the sacrum. Straightened lumbar lordosis denoting myospasm. Mild lumbar spondylosis. T1-T11: a 2.5 mm central focal posterior disc protrusion. No neuroforaminal caet nosis. L2-L3: a diffuse disc bulge with a 3 mm right foraminal disc protrusion inducin g moderate right and mild left exiting nerve root compression. L3-L4: a diffuse disc bulge with 5 mm right foraminal disc protrusion inducing moderate right and mild left exiting nerve root compression. L4-L5: a diffuse disc bulge with 5.5 mm right foraminal disc protrusion inducin g moderate right and mild left exiting nerve root compression. L5-S1: a 1 mm diffuse disc bulge inducing moderate exiting nerve root compressi on. Reading Location: [id number]
== END | disposition home or self-care (01) ==
LOC: MRI 08:34
PROVIDERS: PCP Family Medicine Geriatric Medicine; Referring Provider Family Medicine Geriatric Medicine; Visit Provider Family Medicine Geriatric Medicine
DX: M54.16 Radiculopathy, lumbar region (principal)
CPT/HCPCS: 72148

== ENCOUNTER → 2024-10-06 | Outpatient (CLI) | payer BC, SELFPAY ==
--- NOTE | 2024-10-06 12:55 | RAD_ITS ---
PROCEDURE: KNEE 1 OR 2 VIEWS 10/06/2024 REASON FOR EXAM: KNEE PAIN TECHNIQUE: 2 view(s) of the right knee COMPARISON: None available FINDINGS: No fracture, dislocation or joint effusion. The joint spaces appear within limits. Vascular calcification. RAD/Knee 1 or 2 Views IMPRESSION: No fracture, dislocation or joint effusion. Reading Location: [id number]
== END | disposition home or self-care (01) ==
LOC: RAD 12:54
PROVIDERS: PCP Family Medicine Geriatric Medicine; Referring Provider Anesthesiology Pain Medicine; Visit Provider Anesthesiology Pain Medicine
DX: M25.561 Pain in right knee (principal)
CPT/HCPCS: 73560

== ENCOUNTER → 2025-01-04 | Outpatient (CLI) | payer BC, SELFPAY ==
[2025-01-04 16:57] LABS: Hematocrit 37.2 % (40-54); Hemoglobin 12.7 g/dL (13.0-16.5); Immature Granulocytes Count 0.050 X10^3/uL (0.0-0.0); Mean Corp Hgb Conc 34.1 g/dL (32-36); Mean Corpuscular Volume 101.6 fL (80-94); Mean Platelet Vol. 10.5 fl (6.2-12.0); NRBC Flagged by Analyzer 0 % (0-5); Platelet Count 219 K/mm3 (150-450); RBC Distribution Width CV 12.0 % (11.6-14.6); RBC Distribution Width SD 45.1 fl (35.1-43.9); Red Blood Count 3.66 M/mm3 (4.6-6.2); White Blood Count 8.3 K/mm3 (4.4-11.0)
[2025-01-04 17:19] LABS: Creatinine, Urine (random) 115.00 mg/dL (39.00-259.00); Microalbumin,Random Urine < 12.0 mg/L (<20 mg/L)
[2025-01-04 19:15] LABS: AST(SGOT) 21 U/L (<=37); Alanine Aminotransfer ALT/SGPT 25 U/L (<=46); Albumin, Serum 4.4 g/dL (3.5-5.0); Alkaline Phosphatase 90 U/L (40-129); Anion Gap 17 (5-15); BUN 20 mg/dL (4-19); BUN/Creat Ratio 21.0 RATIO (10-20); Calcium,Total 9.8 mg/dL (7.6-11.0); Carbon Dioxide 18.8 mmol/L (21.0-32.0); Chloride 102 mmol/L (98-108); Cholesterol 109 mg/dL (<=200); Globulin 2.7 g/dL (2.2-4.2); Glucose 105 mg/dL (70-99); Low Density Lipoprotein Calc. 2 mg/dL; PSA,Total - Annual Screen 0.87 ng/mL (0.02-4.00); Potassium 3.9 mmol/L (3.3-5.1); Triglycerides 175 mg/dL; Very Low Density Lipoprotein 35 mg/dL (5-40); cholesterol:hdl ratio screen 1.51
[2025-01-05 00:42] LABS: Xtra Tube Kwok EXTRA TUBE
== END | disposition home or self-care (01) ==
LOC: LAB 16:33
PROVIDERS: PCP Family Medicine Geriatric Medicine; Referring Provider Family Medicine Geriatric Medicine; Visit Provider Family Medicine Geriatric Medicine
DX: I10 Essential (primary) hypertension (principal); E11.65 Type 2 diabetes mellitus with hyperglycemia; E03.9 Hypothyroidism, unspecified; E78.5 Hyperlipidemia, unspecified; Z12.5 Encounter for screening for malignant neoplasm of prostate
CPT/HCPCS: 36415; 80053; 80061; 82043; 82570; 83036; 84153; 84443; 85025; G0103

== ENCOUNTER → 2025-03-04 | Outpatient (CLI) | payer BC, SELFPAY | END | disposition home or self-care (01) | LOC: CVS 09:53 | PROVIDERS: PCP Family Medicine Geriatric Medicine; Referring Provider Internal Medicine Cardiovascular Disease; Visit Provider Internal Medicine Cardiovascular Disease | DX: I10 Essential (primary) hypertension (principal); E78.2 Mixed hyperlipidemia; I25.2 Old myocardial infarction; I25.10 Atherosclerotic heart disease of native coronary artery without angina pectoris; R94.31 Abnormal electrocardiogram [ECG] [EKG]; Z95.5 Presence of coronary angioplasty implant and graft | CPT/HCPCS: 93306 ==